=== PATIENT | male | born 1975 | race Asian ===

== ENCOUNTER → 2023-07-19 15:05 | Outpatient (REF) | payer OTHER, SELFPAY | LOC: RAD 15:05 | PROVIDERS: ATTENDING PHYSICIAN Surgery; FAMILY PHYSICIAN Family Medicine | DX: K63.89 Other specified diseases of intestine (principal) | CPT/HCPCS: 71260; 74177; Q9967 ==

== ENCOUNTER 2023-07-27 05:57 | Inpatient (IN) | payer OTHER, SELFPAY ==
[2023-07-16 08:39] VITALS: BMI 28.4
[2023-07-16 10:33] LABS: Hematocrit 32.6 % (39.0-52.0); Hemoglobin 8.6 g/dL (13.0-18.0); Mean Corp Hgb Conc. 26.4 g/dL (33.0-37.0); Mean Corpuscular Volume 64.3 fL (80.0-94.0); Mean Platelet Volume 10.6 fL (7.4-10.4); Platelet Count 527 10^3/uL (130-400); Red Blood Cell Count 5.07 10^6/uL (4.70-6.10); Red Cell Dist. Width 25.2 % (11.5-14.5); White Blood Cell Count 13.1 10^3/uL (4.8-10.8)
[2023-07-16 10:37] LABS: INR 1.06; PT 13.7 Sec (11.4-14.6)
[2023-07-16 10:38] LABS: APTT 38.7 Sec (23.4-35.0)
[2023-07-16 10:55] LABS: ALT (SGPT) 45 U/L (0-50); AST (SGOT) 47 U/L (17-59); Albumin 4.6 g/dl (3.5-5.0); Alkaline Phosphatase 137 U/L (38-126); Blood Urea Nitrogen 8 mg/dl (9-20); Calcium 12.1 mg/dl (8.4-10.2); Carbon Dioxide 25 mmol/L (22-30); Chloride 99 mmol/L (98-107); Estimated Creatinine Clearance 101 ml/min; Glucose 84 mg/dl (70-99); Potassium 4.7 mmol/L (3.5-5.1); Sodium 137 mmol/L (135-145); Total Bilirubin 0.4 mg/dl (0.2-1.3); Total Protein 7.7 g/dl (6.3-8.2); eGFR > 60.00
[2023-07-16 11:23] LABS: CEA 6.34 ng/ml
[2023-07-16 11:49] LABS: Glycohemoglobin (HgbA1c) 5.5 % (4.0-5.6)
--- NOTE | 2023-07-23 13:05 | PTCARENOTE ---
Cindy in 's office was notified of Hgb 8.6 and platelets 527 collected on 07/16/23.
[2023-07-27] VITALS (11 sets, daily range): BP systolic 129–162; BP diastolic 77–102; BMI 28.4
[2023-07-27] MEDS: TYLENOL 1000 MG PO (11:22)
[2023-07-27] MEDS: ENTEREG 12 MG PO (11:22)
[2023-07-27] MEDS: LOVENOX 40 MG SC (11:23)
[2023-07-27] MEDS: NORMOSOL-R 1000 IV ×2 (11:34→21:07)
--- NOTE | 2023-07-27 18:52 | W.IMMPOSTOP ---
Surgical Immed Post Op Note
-
Primary Surgeon: Raman Disla MD
Assisting Surgeon: BARRETT Greenberg and Hodan Harley PA-C
Pre-op Diagnosis: Partial obstructing ascending colon cancer with liver mets
Post-op Diagnosis: Same
Procedure Performed: Robotic right colectomy with intracorporeal anastomosis and liver biopsy
Anesthesia Type: GETA
Specimen / Cultures: Right colon
Liver biopsy
Estimated Blood Loss: 50 cc
Complications: None
Operative Findings: Bilobar hepatic metastases
Bulky tumor in ascending colon with partial obstruction
Patient's family updated.
Colon Resection
Colon Resection
Operation performed with curative intent: No
Tumor Location: Ascending Colon
Right Hemicolectomy: Ileocolic and Right Colic
Other: liver biopsy
--- NOTE | 2023-07-27 20:30 | PTCARENOTE ---
pt arrived from PACU to 2 south via bed. AAOx3, very pleasant, no c/o pain at this time. Oriented to room and all questions about care answered. Deras in place draining yellow urine. IVF started per order. surgical sites to abdomen CDI. care on
going.
[2023-07-27] MEDS: TORADOL 15 MG IV (21:13)
[2023-07-27] MEDS: TYLENOL 650 MG PO (21:14)
[2023-07-28] MEDS: TYLENOL PO ×2 (01:16→12:40)
[2023-07-28] MEDS: TORADOL 15 MG IV ×3 (02:38→14:15)
[2023-07-28] MEDS: TYLENOL 650 MG PO ×5 (03:09→23:51)
[2023-07-28 03:30] VITALS: BP 140/83
[2023-07-28 06:00] VITALS: BMI 27.8
[2023-07-28 07:03] VITALS: BP 149/89
[2023-07-28] MEDS: NORMOSOL-R 1000 IV (07:17)
[2023-07-28 08:35] LABS: % Basophils 0.1 % (0-2); % Immature Granulocytes 0.6 % (0-0.5); % Lymphocytes 5.4 % (20.5-51.1); % Monocytes 8.1 % (1.7-9.3); % Neutrophils 85.8 % (42.2-75.2); Absolute Immature Granulocytes 0.1 10^3/uL (0-0.05); Absolute Lymphocytes 1.1 10^3/uL (1.2-3.4); Absolute Monocytes 1.6 10^3/uL (0.1-0.6); Absolute Neutrophils 17.3 10^3/uL (1.4-6.5); Hemoglobin 7.3 g/dL (13.0-18.0); Mean Corp Hgb Conc. 26.1 g/dL (33.0-37.0); Mean Corpuscular Hgb 17.3 pg (27.0-31.0); Mean Corpuscular Volume 66.2 fL (80.0-94.0); Mean Platelet Volume 10.6 fL (7.4-10.4); Nucleated Red Blood Cells % 0 % (-); Platelet Count 647 10^3/uL (130-400); Red Blood Cell Count 4.23 10^6/uL (4.70-6.10); Red Cell Dist. Width 24.8 % (11.5-14.5); White Blood Cell Count 20.2 10^3/uL (4.8-10.8)
[2023-07-28 08:52] LABS: Normal RBC Morphology No
[2023-07-28 08:53] LABS: Anisocytosis 2+; Hypochromasia 2+; Polychromasia 1+; Target Cells 1+
[2023-07-28 08:54] LABS: Acanthocytes FEW; Ovalocytes 1+
[2023-07-28] MEDS: DILAUDID 0.5 MG IV (09:03)
[2023-07-28] MEDS: ENTEREG 12 MG PO ×2 (09:05→19:46)
[2023-07-28] MEDS: PROTONIX 40 MG PO (09:05)
[2023-07-28 09:23] LABS: Blood Urea Nitrogen 17 mg/dl (9-20); Carbon Dioxide 28 mmol/L (22-30); Chloride 98 mmol/L (98-107); Estimated Creatinine Clearance 72 ml/min; Glucose 91 mg/dl (70-99); Potassium 5.4 mmol/L (3.5-5.1); Sodium 136 mmol/L (135-145); eGFR > 60.00
[2023-07-28 09:36] LABS: Calcium 14.9 mg/dl (8.4-10.2)
[2023-07-28] MEDS: NSS 1000 IV ×4 (10:31→22:42)
[2023-07-28 11:03] VITALS: BP 152/98
--- NOTE | 2023-07-28 11:58 | CON.HOSP ---
Addendum entered and electronically signed by Anival Hurley MD 07/28/23 15:03:
With serum calcium over 15 and ionized calcium of 2.06 will give saline bolus and increase IV saline to 200 an hour and in 4 hours give a course of IV Lasix 40 mg given my concern of this patient's hypercalcemia in the postop setting concern for
rhabdomyolysis in relation to renal failure consult nephrology also conferred with Dr. Disla who acknowledged and agreed.
Original Note:
Consultation
-
Date/Time Consultation Requested: July 27 10:30 AM
Date/Time Consultation Performed: July 27 11:30 AM
Requesting Provider: Dr. Disla
Performing Provider: Dr. Hurley
Reason for Consultation: The medical management electrolyte imbalance
Family Physician
-
Family Physician: Morro Santiago
Chief Complaint
-
Electrolyte imbalance after surgery
History of Present Illness
47-year-old male who underwent a screening colonoscopy on 29 June finding a fungating villous adenomatous mass in nearly obstructing the transverse colon with biopsy results showing a moderately dysplastic adenocarcinoma with high-grade
dysplasia he underwent a robotic right colectomy with intracorporeal anastomosis and liver biopsy with suspect findings of bilobar hepatic metastasis and bulky tumor in the ascending colon with partial obstruction being found as stated above
operative intervention he had minimal blood loss. Recent history includes a 25 pound weight loss in the last 5 months and also being found to be significantly anemic with microcytosis his baseline CEA level was was 6.34 and a preadmission testing
calcium was measured at 12.1 postoperatively his hemoglobin is 7.3 with microcytosis and hypochromia review of preadmission testing also noted anisocytosis and target cells noted. His creatinine today is 1.4 and preadmission creatinine of 1.0.
Present potassium is 5.4 and pending repeat along with a repeat calcium now measured at 14.9 with an ionized calcium of 14.4.
On review of family history in his parents there is diabetes mellitus there is no prior history of GI malignancies. Patient's mother has had prior hypercalcemia and kidney stones. The patient himself admits to taking Tums at least 2 tablets on a
daily basis for some time.
Medical History
Past Medical History
Past Medical History: Reports Cancer (As noted above) and GERD
Past Surgical History: Reports Bowel Resection
Social History
Tobacco: Non-smoker
Alcohol: None
Drug: None
Personal: Single
Living: With Family
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
Family History
Family History: Diabetes
Allergies / Home Medications
Allergies reflects when Allergies were last updated in [employer].
Home Medications with original date entered in [employer]
Allergy/Medication List:
Allergies
Allergy/AdvReac Type Severity Reaction Status Date / Time
clams Allergy Nausea/DIAR Verified 07/27/23 19:58
LAUREN
pollen extracts Allergy Itching Verified 07/27/23 19:58
Home Medications
Multivitamin Supplement 1 tab PO DAILY Supplement 07/23/23
Sutab 1 dose PO DIRECTED Supplement 07/23/23
Tylenol 1,000 mg PO .Q8H PRN pain 07/23/23
cetirizine 10 mg capsule (Zyrtec) 10 mg PO DAILY PRN allergies 07/23/23
metronidazole 500 mg tablet 500 mg PO DIRECTED Infection 07/23/23
neomycin 500 mg tablet 500 mg PO DIRECTED Infection 07/23/23
pantoprazole 40 mg tablet,delayed release (Protonix) 40 mg PO DAILY GERD 07/23/23
triamcinolone acetonide 55 mcg nasal spray aerosol (Nasacort) 1 spray intranasal DAILY PRN allergies 07/23/23
Review of Systems
-
History Source: Patient
Constitutional: Reports See HPI
EENT: Reports No Symptoms and See HPI
Respiratory: Reports No Symptoms and See HPI
Cardiac: Reports No Symptoms and See HPI
Abdomen/GI: Reports See HPI
: Reports No Symptoms and See HPI
Musculoskeletal: Reports See HPI
Skin: Reports No Symptoms
Neurological: Reports No Symptoms
Endocrine: Reports No Symptoms
Physical Exam
Vital Signs
Vital Signs
Temp Pulse Resp BP Pulse Ox
98.1 F 91 16 149/89 99
07/28/23 07:03 07/28/23 07:03 07/28/23 07:03 07/28/23 07:03 07/28/23 07:03
Physical Exam
General: Well Developed
HEENT: Normocephalic
Respiratory: Clear
Cardiac: S1/S2 and Regular Rhythm
GI: Soft, Non Tender and Tender (At incision lines dressed)
Genito-urinary: No Costovertebral Tend
Skin: Warm
Neuro: Awake, Alert and Oriented
Psych: Calm and Intact Judgement
Laboratory Results
-
PT 13.7 Sec (11.4-14.6) 07/16/23 08:46
INR 1.06 07/16/23 08:46
APTT 38.7 Sec (23.4-35.0) H 07/16/23 08:46
Total Bilirubin 0.4 mg/dl (0.2-1.3) 07/16/23 08:46
AST 47 U/L (17-59) 07/16/23 08:46
ALT 45 U/L (0-50) 07/16/23 08:46
Alkaline Phosphatase 137 U/L (38-126) H 07/16/23 08:46
Data Reviewed
-
Total Time Spent with Patient (in minutes): 58
Lab Data: Labs Reviewed (Calcium 14.9 ionized calcium 14.4/potassium five 5.4/hemoglobin 7.3/)
Impression / Plan
-
IMPRESSION:
47-year-old male who underwent a screening colonoscopy on 29 June finding a fungating villous adenomatous mass in nearly obstructing the transverse colon with biopsy results showing a moderately dysplastic adenocarcinoma with high-grade
dysplasia he underwent a robotic right colectomy with intracorporeal anastomosis and liver biopsy with suspect findings of bilobar hepatic metastasis and bulky tumor in the ascending colon with partial obstruction being found as stated above
operative intervention he had minimal blood loss. Recent history includes a 25 pound weight loss in the last 5 months and also being found to be significantly anemic with microcytosis his baseline CEA level was was 6.34 and a preadmission testing
calcium was measured at 12.1 postoperatively his hemoglobin is 7.3 with microcytosis and hypochromia review of preadmission testing also noted anisocytosis and target cells noted. His creatinine today is 1.4 and preadmission creatinine of 1.0.
Present potassium is 5.4 and pending repeat along with a repeat calcium now measured at 14.9 with an ionized calcium of 14.4./Liver transaminases within normal limits
On review of family history in his parents there is diabetes mellitus there is no prior history of GI malignancies. Patient's mother has had prior hypercalcemia and kidney stones. The patient himself admits to taking Tums at least 2 tablets on a
daily basis for some time.
PLAN:
Status post robotic right colectomy with intracorporeal anastomosis and liver biopsy
-Moderately differentiated adenocarcinoma of the ascending colon with suspected bilobar hepatic metastasis
Medical consultation in relation to electrolyte abnormalities:
-Hyperkalemia/dose of Lokelma today reassess in a.m. after hydration with IV saline
-Hypercalcemia also noted preoperatively/IV saline today considered addition of Lasix in a.m.
-Obtain PTH/vitamin D level/must entertain possible metastasis as cause if refractory/then consideration for bisphosphonates for treatment
-Will need to curtail Tums taken as outpatient
-May need to add calcitonin if also refractory
Acute kidney injury
-Noted postoperatively creatinine of 1.4/preadmission testing of 1.0
-IV fluids next 24 hours
-Reassess in a.m.
Anemia
-Hypochromic microcytic
-Presumably iron loss from occult GI process/CA
-Iron levels
-Hemodynamically stable does not appear to need transfusion
-Has been intolerant to iron supplementations in the past
-Consideration for IV iron infusions during hospitalization
Thank you for opportunity to see this patient and will follow with you
[2023-07-28] MEDS: LOKELMA 5 GRAM PO (12:24)
--- NOTE | 2023-07-28 13:00 | W.PN.CRS1 ---
Today's Communication / Plan
-
Clear liquid diet
Pain management
Assessment/Plan
-
47 yo male presenting for operative management of partial obstructing ascending colon cancer with liver mets now POD #1 Robotic right colectomy with intracorporeal anastomosis and liver biopsy
AFVSS
Hypercalcemia and hyperkalemia
Acute on chronic anemia. Slight drift post op with intraoperative losses and hemodilution
--Repeat labs this afternoon and in the AM
--Hospitalist consulted to assist with management
--Start clear liquid diet, advance to FLD for dinner if passing flatus/tolerating
--D/C cortez for voiding trial
--Ok to shower
--Pain management: Tylenol, Toradol scheduled. PRN dilaudid
--OR path pending
--SCD's while in bed for VTE ppx. If h/h stable, will add lovenox 40mg SQ as well
Subjective Data
Procedure
07/27/23 Robotic right colectomy with intracorporeal anastomosis and liver biopsy
Subjective Data
Date of Service: July 28, 2023
Patient seen and examined at bedside with Dr. Disla. Pain well managed. Denies n/v. No flatus as of yet.
Objective Data
-
Vital Signs
Temp Pulse Resp BP Pulse Ox
98.1 F 91 16 149/89 99
07/28/23 07:03 07/28/23 07:03 07/28/23 07:03 07/28/23 07:03 07/28/23 07:03
Intake & Output
07/27/23 07/28/23 07/29/23
06:59 06:59 06:59
Intake Total 1580 / 1580
Output Total 1400 / 1400
Balance 180 / 180
Intake:
Oral fluids 480 / 480
IV fluids (Total) 1100 / 1100
Output:
Urine, Cortez 1400 / 1400
Physical Exam
-
General: No Acute Distress
HEENT: Grossly Normal
Abdomen: Soft, Non Distended, Tender (expected incisional tenderness) and Other (cortez clear yellow urine)
Skin: Warm
Incision: Clear, Dry, Intact and No Skin Erythema
--- NOTE | 2023-07-28 13:16 | CM ---
Reviewed the chart notes and spoke with the patient at the bedside. Patient is POD #1 Robotic right colectomy with intracorporeal anastomosis and liver biopsy. The patient resides with his significant other in a two story home with no steps to
enter. The patient reports no DME/VN/SNF in the past. The patient confirmed his pharmacy of choice is the [facility]. The patient anticipates being discharged to home with no additional needs being identified at this time.
continues to be available to patient/family and is monitoring medical plan for needs at discharge.
Plan: Discharge to home when medically stable. No needs identified at this time.
[2023-07-28 13:55] LABS: Hematocrit 28.2 % (39.0-52.0); Hemoglobin 7.7 g/dL (13.0-18.0)
[2023-07-28 13:59] LABS: Ionized Calcium 2.06 mMOL/L (1.15-1.33)
[2023-07-28 14:28] LABS: Blood Urea Nitrogen 20 mg/dl (9-20); Carbon Dioxide 26 mmol/L (22-30); Chloride 98 mmol/L (98-107); Estimated Creatinine Clearance 67 ml/min; Glucose 111 mg/dl (70-99); Iron 33 ug/dl (49-181); Magnesium 2.4 mg/dl (1.6-2.3); Phosphorus 4.3 mg/dl (2.5-4.5); Potassium 4.6 mmol/L (3.5-5.1); Sodium 132 mmol/L (135-145); eGFR 58.15
[2023-07-28 14:35] LABS: Intact PTH 10.5 pg/ml (13.6-85.8)
[2023-07-28 14:40] LABS: Percent Saturation 11 % (20-50); Total Iron Binding Capacity 297 ug/dl (261-462); Vitamin D, 25-OH*** 20.1 ng/mL (30-80)
[2023-07-28] MEDS: LASIX 40 MG IV (15:17)
[2023-07-28] MEDS: NSS 500 IV (15:18)
--- NOTE | 2023-07-28 15:43 | W.CON.NEPH ---
Consultation
-
Date/Time Consultation Requested: 07/28/2023 3:00 PM
Date/Time Consultation Performed: 07/28/2023 3:15 PM
Requesting Provider: Xavi
Performing Provider: Sidney
Reason for Consultation: Acute kidney injury hyponatremia hypercalcemia
Medical History
-
Chief Complaint: Hypercalcemia/acute kidney/hyponatremia
History of Present Illness:
The patient is a 47-year-old male with past medical history of GERD maintained on proton pump inhibitor therapy and calcium carbonate. The patient �underwent a screening colonoscopy on 29 June finding a fungating villous adenomatous mass in
nearly obstructing the transverse colon with biopsy results showing a moderately dysplastic adenocarcinoma with high-grade dysplasia he underwent a robotic right colectomy with intracorporeal anastomosis and liver biopsy with suspect findings of
bilobar hepatic metastasis and bulky tumor in the ascending colon with partial obstruction being found as stated above operative intervention he had minimal blood loss.� Recent history includes a 25 pound weight loss in the last 5 months and also
being found to be significantly anemic with microcytosis his baseline CEA level was was 6.34 and a preadmission testing calcium was measured at 12.1 postoperatively his hemoglobin is 7.3 with microcytosis and hypochromia review of preadmission
testing also noted anisocytosis and target cells noted.� His creatinine today is 1.5 and preadmission creatinine of 1.0.� Present potassium is 5.4 and pending repeat along with a repeat calcium now measured at 14.9 with an ionized calcium of 2.06.
He also has associated hyponatremia with a serum sodium of 132. Nephrology was asked to see the patient for his acute hyper calcium, hyponatremia and acute renal failure.
On review of family history in his parents there is diabetes mellitus there is no prior history of GI malignancies.� Patient's mother has had prior hypercalcemia and kidney stones.�
Past Medical History
GERD
Social History
No tobacco abuse
Occasional alcohol but no alcohol since March 2023
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
Family History
On review of family history in his parents there is diabetes mellitus there is no prior history of GI malignancies.� Patient's mother has had prior hypercalcemia and kidney stones
Allergies / Home Medications
Allergy/AdvReac Type Severity Reaction Status Date / Time
clams Allergy Nausea/DIAR Verified 07/27/23 19:58
LAUREN
pollen extracts Allergy Itching Verified 07/27/23 19:58
Medication Instructions Recorded Confirmed Type
Multivitamin Supplement 1 tab PO DAILY Supplement 07/23/23 07/27/23 History
Sutab 1 dose PO DIRECTED Supplement 07/23/23 07/27/23 History
Tylenol 1,000 mg PO .Q8H PRN pain 07/23/23 07/27/23 History
cetirizine 10 mg capsule (Zyrtec) 10 mg PO DAILY PRN allergies 07/23/23 07/27/23 History
metronidazole 500 mg tablet 500 mg PO DIRECTED Infection 07/23/23 07/27/23 History
neomycin 500 mg tablet 500 mg PO DIRECTED Infection 07/23/23 07/27/23 History
pantoprazole 40 mg tablet,delayed 40 mg PO DAILY GERD 07/23/23 07/27/23 History
release (Protonix)
triamcinolone acetonide 55 mcg 1 spray intranasal DAILY PRN 07/23/23 07/27/23 History
nasal spray aerosol (Nasacort) allergies
Review of Systems
-
History Source: Patient
All other systems: Negative unless noted
Constitutional: Weight Loss (25 pounds over few months)
EENT: No Symptoms
Respiratory: No Symptoms
Cardiac: No Symptoms
Abdomen/GI: Abdominal Pain (post operative)
: No Symptoms
Musculoskeletal: No Symptoms
Skin: No Symptoms
Neurological: No Symptoms
Endocrine: No Symptoms
Hematologic/Lymphatic: No Symptoms
Physical Exam
Vital Signs
Vital Signs
Temp Pulse Resp BP Pulse Ox
98.1 F 97 16 152/98 99
07/28/23 11:03 07/28/23 11:03 07/28/23 11:03 07/28/23 11:03 07/28/23 11:03
Lab Results
07/28/23 13:48
07/28/23 13:48
WBC 20.2 10^3/uL (4.8-10.8) H 07/28/23 06:46
RBC 4.23 10^6/uL (4.70-6.10) L 07/28/23 06:46
Hgb 7.7 g/dL (13.0-18.0) L 07/28/23 13:48
Hct 28.2 % (39.0-52.0) L 07/28/23 13:48
Plt Count 647 10^3/uL (130-400) H 07/28/23 06:46
Sodium 132 mmol/L (135-145) L 07/28/23 13:48
Potassium 4.6 mmol/L (3.5-5.1) 07/28/23 13:48
Chloride 98 mmol/L (98-107) 07/28/23 13:48
Carbon Dioxide 26 mmol/L (22-30) 07/28/23 13:48
BUN 20 mg/dl (9-20) 07/28/23 13:48
Creatinine 1.5 mg/dL (0.7-1.3) H 07/28/23 13:48
eGFR 58.15 07/28/23 13:48
Glucose 111 mg/dl (70-99) H 07/28/23 13:48
Calcium Cancelled 07/28/23 14:00
Phosphorus 4.3 mg/dl (2.5-4.5) 07/28/23 13:48
Albumin 4.6 g/dl (3.5-5.0) 07/16/23 08:46
Physical Exam
General: AOx3
HEENT: PERRL, EOMI, Anicteric, Conjunctivae Clear, Ear/Nose Intact, Hearing Normal, Oropharynx Clear/Moist, Dentition Intact, Neck Supple, Trachea Midline, No JVD and No Thyromegaly
Respiratory: Clear and Normal Excursion
Cardiac: S1/S2 and Regular Rate/Rhythm
Breast: Deferred by me
Abdomen: Soft and Other (Tender around surgical site, some bowel sounds noted)
Rectal: Deferred by Provider
Genito-urinary: No Costovertebral Tender
Musculoskeletal: No Clubbing, No Cyanosis and No Edema
Skin: No Rash, Warm, Dry, No Clubbing, No Cyanosis, Normal Turgor and No Bruising
Neuro: Nonfocal/Grossly Intact and CN II-XII (intact)
Hematologic/Lymphatic: No Cervical Lymphadenopathy, No Submandibular Lymphadenopathy and No Supraclavicular Lymphadenopathy
Psych: Mood/afflect pleasant, Insight/judgement good and Appropriate
Assessment/Plan
-
Impression:
Status post robotic right colectomy with intracorporeal anastomosis and liver biopsy 07/27/23 for fungating villous adenomatous colon mass with hepatic metastasis
Hypercalcemia
Hyponatremia
Acute kidney
Anemia
Plan:
I suspect the patient's acute kidney injury is mediated by his hypercalcemia precipitating a strong prerenal
-Therefore I concur with administration of normal saline with IV Lasix to promote Calciuria
-As hypercalcemia is likely causative etiology of acute renal failure I will treat with pamidronate IV as serum calcium now noted to be 15
-Intact PTH was appropriately repressed at 10.5, I suspect hypercalcemia is mediated by underlying malignancy which I will confirm with a PTH RP
-Vitamin D levels were not
-Withhold further calcium carbonate
-check UA and FeNa in setting of CHANNING
-Monitor hyponatremia and will place fluid restriction and obtain urine osmolarity if needed
Data Reviewed
-
CT Scan: Report Reviewed by me (CT of abdomen and pelvis with IV contrast reviewed from July 2023: No hydronephrosis large mass within cecum extending into proximal ascending colon)
Medical Tests (Nuc Med, Echo etc): Other (EKG personally reviewed by me normal sinus rhythm at 89 beats per minute)
Labs: Labs Reviewed by me (BMP calcium CBC reviewed)
Old Records: Reviewed (Reviewed old BMP from date 07/16/2023 creatinine 1 calcium 12.1)
[2023-07-28 16:02] VITALS: BP 158/110
[2023-07-28] MEDS: AREDIA 270 MG IV (16:41)
[2023-07-28 16:59] LABS: Osmolality Urine 219 mOsm/kg (300-900)
[2023-07-28 17:08] LABS: Urine Albumin Negative (Neg - Trace); Urine Bilirubin Negative (Negative); Urine Character Clear (Clear); Urine Color Straw; Urine Glucose Negative (Negative); Urine Ketone Negative (Negative); Urine Leukocyte Trace (Negative); Urine Nitrite Negative (Negative); Urine Occult Blood Negative (Negative); Urine Urobilinogen Negative (Neg - 1+)
[2023-07-28 17:13] LABS: Urine Sodium 92 mmol/L (30-90)
[2023-07-28] MEDS: LOVENOX 40 MG SC (17:17)
[2023-07-28 17:19] LABS: Urine Red Blood Cell 0-2 /HPF (0-2); Urine White Cell 0-2 /HPF (0-5)
--- NOTE | 2023-07-28 17:53 | PTCARENOTE ---
Patients blood pressure at 1602 was 158/[address] Hurley made aware. No new orders given at that time.
[2023-07-29] VITALS (8 sets, daily range): BP systolic 115–153; BP diastolic 74–99; BMI 27.5
--- NOTE | 2023-07-29 03:13 | PTCARENOTE ---
patient states he started passing flatus.
[2023-07-29] MEDS: NSS 1000 IV ×3 (03:30→14:46)
[2023-07-29] MEDS: TYLENOL PO (04:20)
--- NOTE | 2023-07-29 07:29 | W.PN.HOSP.TC ---
Today's Communication/Plan
-
Awaiting today's labs including renal numbers and calcium
Appreciate nephrology input
Continue IV hydration
Received doses of pamidronate
Would add IV iron
Assessment / Plan
Assessment / Plan
47-year-old male who underwent a screening colonoscopy on 29 June finding a fungating villous adenomatous mass in nearly obstructing the transverse colon with biopsy results showing a moderately dysplastic adenocarcinoma with high-grade
dysplasia he underwent a robotic right colectomy with intracorporeal anastomosis and liver biopsy with suspect findings of bilobar hepatic metastasis and bulky tumor in the ascending colon with partial obstruction being found as stated above
operative intervention he had minimal blood loss.� Recent history includes a 25 pound weight loss in the last 5 months and also being found to be significantly anemic with microcytosis his baseline CEA level was was 6.34 and a preadmission testing
calcium was measured at 12.1 postoperatively his hemoglobin is 7.3 with microcytosis and hypochromia review of preadmission testing also noted anisocytosis and target cells noted.� His creatinine today is 1.4 and preadmission creatinine of 1.0.�
Present potassium is 5.4 and pending repeat along with a repeat calcium now measured at 14.9 with an ionized calcium of 14.4.
On review of family history in his parents there is diabetes mellitus there is no prior history of GI malignancies.� Patient's mother has had prior hypercalcemia and kidney stones.� The patient himself admits to taking Tums at least 2 tablets on a
daily basis for some time.
Status post robotic right colectomy with intracorporeal anastomosis and liver biopsy
-Moderately differentiated adenocarcinoma of the ascending colon with suspected bilobar hepatic metastasis
-No transaminitis
Medical consultation in relation to�electrolyte abnormalities:
-Hyperkalemia/dose of Lokelma given and resolved
-Hypercalcemia�also noted preoperatively/IV saline at increased volume for the last 12 hours with IV Lasix given
-Serum calcium of 15 ionized calcium 2.06
- PTH level suppressed/vitamin D level diminished/must entertain his malignancy contributing/bisphosphonate/pamidronate given
-Will need to curtail Tums taken as outpatient
-Have asked nephrology input given degree of hypercalcemia may be instigating his CHANNING
Acute kidney injury
-Noted postoperatively creatinine of 1.4>> 1.5/preadmission testing of 1.0
-IV fluids next 24 hours
-Repeat labs pending this morning
Anemia
-Hypochromic microcytic
-Presumably iron loss from occult GI process/CA
-Iron levels all depressed
-Hemodynamically stable does not appear to need transfusion
-Has been intolerant to iron supplementations in the past
-Consideration for IV iron infusions during hospitalization
Thank you for opportunity to see this patient and will follow with you
Anticipated Discharge: 24 - 48 hours
Subjective/Interval History
-
Date of Service: July 29, 2023
Feels well hide small narrow caliber bowel movement earlier with some red streaks been urinating constantly due to the vigorous fluid volume he has been receiving overnight and IV Lasix
Objective Data
-
Labs:
Laboratory Results
07/29/23
07:19
WBC Pending
Hgb Pending
Hct Pending
Plt Count Pending
Sodium Pending
Potassium Pending
Chloride Pending
Carbon Dioxide Pending
BUN Pending
Creatinine Pending
Glucose Pending
Calcium Pending
Vital Signs:
Vital Signs
Temp Pulse Resp BP Pulse Ox
98.0 F 88 18 144/93 100
07/29/23 00:10 07/29/23 00:10 07/29/23 00:10 07/29/23 00:10 07/29/23 00:10
I&O
07/28/23 07/29/23 07/30/23
06:59 06:59 06:59
Intake Total 1580 / 1580 4560 / 4560
Output Total 1400 / 1400 5125 / 5125
Balance 180 / 180 -565 / -565
Review of Systems
-
History Source: Patient
Constitutional: Reports No Symptoms
EENT: Reports No Symptoms Reported
Respiratory: Reports No Symptoms
Cardiac: Reports No Symptoms
Abdomen/GI: Reports No Symptoms
Genitourinary: Reports Frequency
Physical Exam
-
General: Well Developed
HEENT: Normocephalic
Respiratory: Clear to Auscultation
Cardiac: Regular Rhythm
GI: Soft and Tender (Only around incision)
Skin: Warm
Neuro: Awake
Psych: Calm
Data Reviewed
-
Total Time Spent with Patient (in minutes): 56
Labs: Labs Reviewed by me (Today's labs pending but ionized calcium and serum calcium are significantly elevated, potassium corrected to 4 .6 yesterday/creatinine john further to 1.5)
[2023-07-29 07:46] LABS: Hematocrit 27.7 % (39.0-52.0); Hemoglobin 7.2 g/dL (13.0-18.0); Mean Corpuscular Hgb 17.2 pg (27.0-31.0); Mean Corpuscular Volume 66.1 fL (80.0-94.0); Mean Platelet Volume 10.3 fL (7.4-10.4); Platelet Count 646 10^3/uL (130-400); Red Blood Cell Count 4.19 10^6/uL (4.70-6.10); Red Cell Dist. Width 24.5 % (11.5-14.5); White Blood Cell Count 18.7 10^3/uL (4.8-10.8)
[2023-07-29] MEDS: TYLENOL 650 MG PO ×4 (08:34→20:48)
[2023-07-29] MEDS: PROTONIX 40 MG PO (08:34)
[2023-07-29] MEDS: ENTEREG 12 MG PO (08:34)
[2023-07-29 09:04] LABS: Blood Urea Nitrogen 19 mg/dl (9-20); Carbon Dioxide 26 mmol/L (22-30); Chloride 105 mmol/L (98-107); Estimated Creatinine Clearance 72 ml/min; Glucose 86 mg/dl (70-99); Magnesium 2.4 mg/dl (1.6-2.3); Phosphorus 2.7 mg/dl (2.5-4.5); Potassium 4.4 mmol/L (3.5-5.1); Sodium 136 mmol/L (135-145); Uric Acid 11.8 mg/dl (3.5-8.5); eGFR > 60.00
--- NOTE | 2023-07-29 11:50 | W.PN.CRS1 ---
Today's Communication / Plan
-
low residue
trend hemoglobin
Assessment/Plan
-
47 yo male presenting for operative management of partial obstructing ascending colon cancer with liver mets now POD #1 Robotic right colectomy with intracorporeal anastomosis and liver biopsy
1. Vitas normal.
2. Hemoglobin 7.2 from 7.7. Will trend. No transfusions yet.
3. Advance to a low residue diet.
4. Appreciate hospitalist/nephrology for management of electrolytes.
5. Pain management: Tylenol, Toradol scheduled. PRN Dilaudid.
6. OR path pending
7. SCD's while in bed for VTE ppx, continue Lovenox.
Subjective Data
Procedure
07/27/23 Robotic right colectomy with intracorporeal anastomosis and liver biopsy
Subjective Data
Date of Service: July 29, 2023
Patient states he has no pain. He had flatus a few times. He had a small bloody bowel movement yesterday. He got out of bed yesterday and walked.
Objective Data
-
Vital Signs
Temp Pulse Resp BP Pulse Ox
99.6 F 97 16 153/99 100
07/29/23 07:35 07/29/23 10:13 07/29/23 07:35 07/29/23 07:35 07/29/23 10:13
Intake & Output
07/28/23 07/29/23 07/30/23
06:59 06:59 06:59
Intake Total 1580 / 1580 4560 / 4560
Output Total 1400 / 1400 5125 / 5125
Balance 180 / 180 -565 / -565
Intake:
Oral fluids 480 / 480 480 / 480
IV fluids (Total) 1100 / 1100 3810 / 3810
IV piggybacks 270 / 270
Output:
Urine, Deras 1400 / 1400
Urine, Voided 5125 / 5125
Other:
Number of approximated MODERATE 2
amounts of urine
Lab Results
07/29/23 07:19
07/29/23 07:19
Physical Exam
-
General: No Acute Distress and AOx3
Abdomen: Soft, Non Distended and Non Tender
Skin: Warm and Dry
Incision: Clear, Dry, Intact
--- NOTE | 2023-07-29 11:52 | W.PN.NEPH.PH ---
Today's Communication / Plan
-
Maintain IV fluid
Follow calcium and electrolyte daily
Assessment/Plan
-
Impression:
Status post robotic right colectomy with intracorporeal anastomosis and liver biopsy 07/27/23 for fungating villous adenomatous colon mass with hepatic metastasis
Hypercalcemia
Hyponatremia
Acute kidney
Anemia
Plan:
I suspect the patient's acute kidney injury is mediated by his hypercalcemia precipitating a strong prerenal stimulus
-Creatinine down to 1.4 and grossly nonoliguric with greater than 5 L urine output
-status post pamidronate administration on 07/28/2023 with serum calcium down from 15-13
-Maintain IV fluids to promote Calciuria
-Intact PTH was appropriately repressed at 10.5, I suspect hypercalcemia is mediated by underlying malignancy which I will confirm with a PTH RP
-Vitamin D levels were not elevated
-Withholding further calcium carbonate
-checked UA: No evidence of blood or protein Fena was not consistent with prerenal stimulus
-Hyponatremia improving with isotonic saline
-
-
Date of Service: July 29, 2023
CC / HPI / ROS
-
Chief Complaint:
Hypercalcemia
Acute kidney
History of Present Illness:
Hemodynamically stable
Creatinine improved to 1.4
Serum calcium down from 15-13 following pamidronate IV fluids and Lasix
Review of Systems:
Grossly nonoliguric in excess of 5 L
No chest pain or shortness of breath
Diet advancing
Flatus
Postoperative abdominal pain improved
Labs
-
Labs:
WBC 18.7 10^3/uL (4.8-10.8) H 07/29/23 07:19
RBC 4.19 10^6/uL (4.70-6.10) L 07/29/23 07:19
Hgb 7.2 g/dL (13.0-18.0) L 07/29/23 07:19
Hct 27.7 % (39.0-52.0) L 07/29/23 07:19
Plt Count 646 10^3/uL (130-400) H 07/29/23 07:19
Sodium 136 mmol/L (135-145) 07/29/23 07:19
Potassium 4.4 mmol/L (3.5-5.1) 07/29/23 07:19
Chloride 105 mmol/L (98-107) 07/29/23 07:19
Carbon Dioxide 26 mmol/L (22-30) 07/29/23 07:19
BUN 19 mg/dl (9-20) 07/29/23 07:19
Creatinine 1.4 mg/dL (0.7-1.3) H 07/29/23 07:19
eGFR > 60.00 07/29/23 07:19
Glucose 86 mg/dl (70-99) 07/29/23 07:19
Calcium 13.0 mg/dl (8.4-10.2) H 07/29/23 07:19
Phosphorus 2.7 mg/dl (2.5-4.5) 07/29/23 07:19
Albumin 4.6 g/dl (3.5-5.0) 07/16/23 08:46
Physical Exam
-
Vital Signs:
Vital Signs
Temp Pulse Resp BP Pulse Ox
99.6 F 97 16 153/99 100
07/29/23 07:35 07/29/23 10:13 07/29/23 07:35 07/29/23 07:35 07/29/23 10:13
Cardiovascular:: Regular rate and rhythm
Respiratory:: Bilateral: CTA
Lung Excursion:: Normal
Abdomen:: Soft and Tender
Bowel Sounds:: Decreased
Extremity Edema:: None: Bilateral:
Deras Catheter: No
[2023-07-29] MEDS: FERRLECIT 110 MG IV (13:31)
[2023-07-29 15:04] LABS: Hematocrit 24.1 % (39.0-52.0)
[2023-07-29 15:08] LABS: Hemoglobin 6.7 g/dL (13.0-18.0)
[2023-07-29] MEDS: LOVENOX 40 MG SC (17:42)
[2023-07-29] MEDS: ENTEREG PO (20:48)
--- NOTE | 2023-07-29 22:00 | PTCARENOTE ---
1u PRBC infused, no adverse reactions noted. Vital signs documented. Assessment ongoing.
[2023-07-30] VITALS (9 sets, daily range): BP systolic 138–155; BP diastolic 83–97; BMI 28.2
[2023-07-30] MEDS: TYLENOL PO ×5 (00:40→20:27)
[2023-07-30] MEDS: NSS IV ×2 (01:11→10:59)
[2023-07-30] MEDS: NSS 1000 IV ×2 (02:50→12:11)
[2023-07-30 06:23] LABS: Hematocrit 24.8 % (39.0-52.0); Mean Corp Hgb Conc. 27.4 g/dL (33.0-37.0); Mean Corpuscular Volume 69.3 fL (80.0-94.0); Mean Platelet Volume 10.2 fL (7.4-10.4); Platelet Count 468 10^3/uL (130-400); Red Blood Cell Count 3.58 10^6/uL (4.70-6.10); Red Cell Dist. Width 25.1 % (11.5-14.5); White Blood Cell Count 11.5 10^3/uL (4.8-10.8)
[2023-07-30 06:43] LABS: Hemoglobin 6.8 g/dL (13.0-18.0)
[2023-07-30 06:51] LABS: ALT (SGPT) 41 U/L (0-50); AST (SGOT) 62 U/L (17-59); Albumin 3.1 g/dl (3.5-5.0); Alkaline Phosphatase 181 U/L (38-126); Blood Urea Nitrogen 19 mg/dl (9-20); Calcium 11.1 mg/dl (8.4-10.2); Carbon Dioxide 25 mmol/L (22-30); Chloride 102 mmol/L (98-107); Estimated Creatinine Clearance 84 ml/min; Glucose 77 mg/dl (70-99); Potassium 4.6 mmol/L (3.5-5.1); Sodium 135 mmol/L (135-145); Total Bilirubin 0.5 mg/dl (0.2-1.3); Total Protein 5.7 g/dl (6.3-8.2); eGFR > 60.00
[2023-07-30] MEDS: PROTONIX 40 MG PO (08:17)
[2023-07-30] MEDS: ENTEREG PO ×2 (08:17→20:27)
[2023-07-30] MEDS: TYLENOL 650 MG PO (08:17)
[2023-07-30 09:09] LABS: Hematocrit 23.2 % (39.0-52.0); Mean Corp Hgb Conc. 28.9 g/dL (33.0-37.0); Mean Corpuscular Hgb 19.9 pg (27.0-31.0); Mean Corpuscular Volume 68.8 fL (80.0-94.0); Mean Platelet Volume 10.3 fL (7.4-10.4); Platelet Count 480 10^3/uL (130-400); Red Blood Cell Count 3.37 10^6/uL (4.70-6.10); Red Cell Dist. Width 25.2 % (11.5-14.5); White Blood Cell Count 13.7 10^3/uL (4.8-10.8)
[2023-07-30 09:15] LABS: Hemoglobin 6.7 g/dL (13.0-18.0)
--- NOTE | 2023-07-30 10:57 | W.PN.NEPH.PH ---
Today's Communication / Plan
-
reduce IVF
Assessment/Plan
-
Impression:
Status post robotic right colectomy with intracorporeal anastomosis and liver biopsy 07/27/23 for fungating villous adenomatous colon mass with hepatic metastasis
Hypercalcemia
Hyponatremia
Acute kidney
Anemia
Plan:
-reduce IVF rate
-follow BMP
-can use lasix prn for edema
-transfuse PRBC, follow h/h
-await liver path
-await PTHrP
-
-
Date of Service: July 30, 2023
CC / HPI / ROS
-
Chief Complaint:
Hypercalcemia
Acute kidney
History of Present Illness:
Hemodynamically stable
Creatinine improved to 1.2
Serum calcium down from 15- to 11.1
Review of Systems:
Grossly nonoliguric
No chest pain or shortness of breath
Flatus
Postoperative abdominal pain improved
Labs
-
Labs:
WBC 13.7 10^3/uL (4.8-10.8) H 07/30/23 08:56
RBC 3.37 10^6/uL (4.70-6.10) L 07/30/23 08:56
Hgb 6.7 g/dL (13.0-18.0) L* 07/30/23 08:56
Hct 23.2 % (39.0-52.0) L 07/30/23 08:56
Plt Count 480 10^3/uL (130-400) H 07/30/23 08:56
Sodium 135 mmol/L (135-145) 07/30/23 05:12
Potassium 4.6 mmol/L (3.5-5.1) 07/30/23 05:12
Chloride 102 mmol/L (98-107) 07/30/23 05:12
Carbon Dioxide 25 mmol/L (22-30) 07/30/23 05:12
BUN 19 mg/dl (9-20) 07/30/23 05:12
Creatinine 1.2 mg/dL (0.7-1.3) 07/30/23 05:12
eGFR > 60.00 07/30/23 05:12
Glucose 77 mg/dl (70-99) 07/30/23 05:12
Calcium 11.1 mg/dl (8.4-10.2) H 07/30/23 05:12
Phosphorus 2.7 mg/dl (2.5-4.5) 07/29/23 07:19
Albumin 3.1 g/dl (3.5-5.0) L 07/30/23 05:12
Physical Exam
-
Vital Signs:
Vital Signs
Temp Pulse Resp BP Pulse Ox
98.2 F 99 18 146/91 99
07/30/23 08:25 07/30/23 08:25 07/30/23 08:25 07/30/23 08:25 07/30/23 08:00
Cardiovascular:: Regular rate and rhythm
Lung Excursion:: Normal
Abdomen:: Nontender and Soft
Bowel Sounds:: Normal
Extremity Edema:: +1: Bilateral:
--- NOTE | 2023-07-30 11:46 | W.PN.CRS1 ---
Today's Communication / Plan
-
1 unit prbcs
recheck h/h later today
monitor vitals
Assessment/Plan
-
47 yo male presenting for operative management of partial obstructing ascending colon cancer with liver mets now POD #3 Robotic right colectomy with intracorporeal anastomosis and liver biopsy
1. Tachycardic overnight. EKG ordered prior to rounds which showed sinus with some PVCs.
2. Tmax 100.2, wnl this morning. Continue to monitor.
3. Hgb 6.7 s/p 1 unit last night. Currently receiving another 1 more unit this AM. Recheck H/H later today.
4. On a low residue diet.
5. Appreciate hospitalist/nephrology for management of electrolytes.
6. Pain management: Tylenol, Toradol scheduled. PRN Dilaudid.
7. OR path pending
8. SCD's while in bed for VTE ppx, holding Lovenox given anemia.
Subjective Data
Procedure
07/27/23 Robotic right colectomy with intracorporeal anastomosis and liver biopsy
Subjective Data
Date of Service: July 30, 2023
Patient states he had a few bowel movements yesterday. There were some bloody clots and brown/red colored stool. Otherwise, he has no pain, he is just 'sore'. He denies nausea or vomiting. He is tolerating a low residue diet.
Objective Data
-
Vital Signs
Temp Pulse Resp BP Pulse Ox
98.5 F 100 18 150/95 99
07/30/23 11:06 07/30/23 11:06 07/30/23 11:06 07/30/23 11:06 07/30/23 08:00
Intake & Output
07/29/23 07/30/23 07/31/23
06:59 06:59 06:59
Intake Total 4560 / 4560 4100 / 4100 250 / 250
Output Total 5125 / 5125 1155 / 1155
Balance -565 / -565 2945 / 2945 250 / 250
Intake:
Oral fluids 480 / 480 1860 / 1860
IV fluids (Total) 3810 / 3810 1740 / 1740
IV piggybacks 270 / 270
Blood products 250 / 250
Blood Product Amount Infused ( 250 / 250 250 / 250
mL)
Packed Rbc Leukoreduced Unit 250 / 250
[id number]
Packed Rbc Leukoreduced Unit 250 / 250
[id number]
Output:
Urine, Voided 5125 / 5125 115 / 1155
Other:
Number of approximated MODERATE 2 3
amounts of urine
Number of unmeasured liquid
stools
Rectum 1
Lab Results
07/30/23 08:56
07/30/23 05:12
Physical Exam
-
General: No Acute Distress and AOx3
Abdomen: Soft, Non Distended and Tender (mild upper quadrants)
Skin: Warm and Dry
--- NOTE | 2023-07-30 12:32 | CM ---
Reviewed the chart notes. Patient received received 1 unit PRBC yesterday and another today. Diet advanced to low residual. CM continues to be available to patient/family and is monitoring medical plan for needs at discharge.
Plan: Discharge to home when medically stable. No needs anticipated at this time.
[2023-07-30] MEDS: FERRLECIT 110 MG IV (13:52)
--- NOTE | 2023-07-30 13:57 | W.PN.HOSP.TC ---
Today's Communication/Plan
-
trend cbc, transfuse as necessary; hgb goal >7; hold dvt ppx if continued hgb drop
IV Iron
Reduce IV fluids, monitor Ca - anticipate will be lower tomorrow especially with tranfusions
Assessment / Plan
Assessment / Plan
47-year-old male who underwent a screening colonoscopy on 29 June finding a fungating villous adenomatous mass in nearly obstructing the transverse colon with biopsy results showing a moderately dysplastic adenocarcinoma with high-grade
dysplasia he underwent a robotic right colectomy with intracorporeal anastomosis and liver biopsy with suspect findings of bilobar hepatic metastasis and bulky tumor in the ascending colon with partial obstruction being found as stated above
operative intervention he had minimal blood loss.� Recent history includes a 25 pound weight loss in the last 5 months and also being found to be significantly anemic with microcytosis his baseline CEA level was was 6.34 and a preadmission testing
calcium was measured at 12.1 postoperatively his hemoglobin is 7.3 with microcytosis and hypochromia review of preadmission testing also noted anisocytosis and target cells noted.� His creatinine today is 1.4 and preadmission creatinine of 1.0.�
Present potassium is 5.4 and pending repeat along with a repeat calcium now measured at 14.9 with an ionized calcium of 14.4.
On review of family history in his parents there is diabetes mellitus there is no prior history of GI malignancies.� Patient's mother has had prior hypercalcemia and kidney stones.� The patient himself admits to taking Tums at least 2 tablets on a
daily basis for some time.
Status post robotic right colectomy with intracorporeal anastomosis and liver biopsy
-Moderately differentiated adenocarcinoma of the ascending colon with suspected bilobar hepatic metastasis
-No transaminitis
-F/u Liver bx
Medical consultation in relation to�electrolyte abnormalities:
-Hyperkalemia/dose of Lokelma given and resolved
-Hypercalcemia�also noted preoperatively/IV saline at increased volume for the last 12 hours with IV Lasix given
�Improving
- PTH level suppressed/vitamin D level diminished/must entertain his malignancy contributing/bisphosphonate/pamidronate given
-Will need to curtail Tums taken as outpatient
-Have asked nephrology input given degree of hypercalcemia may be instigating his CHANNING
�Reduce IV fluid rate, follow-up calcium levels; okay for low-dose Lasix for edema
� Await PTHrP
Acute kidney injury
-Noted postoperatively creatinine of 1.4>> 1.5/preadmission testing of 1.0
-IV fluids next 24 hours
-improving
Anemia, acute blood loss anemia
-Hypochromic microcytic
-Presumably iron loss from occult GI process/CA as well as possible acute bleed
-s/p 1 u prbc; transfuse additional 1 additional unit; maintain hgB > 7; trend cbc
-cont iv iron
-if continued to drop - can stop dvt ppx
Thank you for opportunity to see this patient and will follow with you
Anticipated Discharge: > 48 hours
Subjective/Interval History
-
Date of Service: July 30, 2023
Patient receiving further transfusions for anemia, otherwise no acute changes
Objective Data
-
Labs:
Laboratory Results
07/30/23 07/30/23 07/30/23
05:12 08:56 16:00
WBC 11.5 H 13.7 H
Hgb 6.8 L* 6.7 L* Pending
Hct 24.8 L 23.2 L Pending
Plt Count 468 H D 480 H
Sodium 135
Potassium 4.6
Chloride 102
Carbon Dioxide 25
BUN 19
Creatinine 1.2
Glucose 77
Calcium 11.1 H
Total Bilirubin 0.5
AST 62 H
ALT 41
Alkaline Phosphatase 181 H
Vital Signs:
Vital Signs
Temp Pulse Resp BP Pulse Ox
98.5 F 100 18 150/95 99
07/30/23 11:06 03/25/24 11:06 07/30/23 11:06 07/30/23 11:06 07/30/23 08:00
I&O
07/29/23 07/30/23 07/31/23
06:59 06:59 06:59
Intake Total 4560 / 4560 4100 / 4100 250 / 250
Output Total 5125 / 5125 1155 / 1155
Balance -565 / -565 2945 / 2945 250 / 250
Review of Systems
-
History Source: Patient
Constitutional: Reports No Symptoms
EENT: Reports No Symptoms Reported
Respiratory: Reports No Symptoms
Cardiac: Reports No Symptoms
Abdomen/GI: Reports No Symptoms
Genitourinary: Reports Frequency
Physical Exam
-
General: Well Developed
HEENT: Normocephalic
Respiratory: Clear to Auscultation
Cardiac: Regular Rhythm
GI: Soft and Tender (Only around incision)
Skin: Warm
Neuro: Awake
Psych: Calm
Data Reviewed
-
CT Scan: Image personally visualized and interpreted and Report Reviewed by me
Labs: Labs Reviewed by me
[2023-07-30 16:04] LABS: Hematocrit 23.1 % (39.0-52.0)
[2023-07-30 16:12] LABS: Hemoglobin 6.7 g/dL (13.0-18.0)
[2023-07-30] MEDS: TRANEXAMIC ACID 110 MG IV (16:57)
--- NOTE | 2023-07-30 21:52 | W.PN.UPDATE ---
Update Note
Progress Note Update
Notified that Hb was 6.7 s/p second pRBC; ordered for TXA and third pRBC; seen patient at bedside, clinically doing well without complaints, passed a few more BMs small volume with dark blood, nothing bright red, abdomen benign; continue holding AC
[2023-07-31] MEDS: TYLENOL PO ×5 (00:10→20:53)
[2023-07-31 03:17] VITALS: BP 141/92
[2023-07-31] MEDS: NSS 1000 IV (04:39)
[2023-07-31 04:50] VITALS: BMI 27.9
[2023-07-31 05:58] LABS: Hematocrit 25.2 % (39.0-52.0); Hemoglobin 7.6 g/dL (13.0-18.0); Mean Corp Hgb Conc. 30.2 g/dL (33.0-37.0); Mean Corpuscular Hgb 21.5 pg (27.0-31.0); Mean Corpuscular Volume 71.2 fL (80.0-94.0); Mean Platelet Volume 10.4 fL (7.4-10.4); Platelet Count 446 10^3/uL (130-400); Red Blood Cell Count 3.54 10^6/uL (4.70-6.10); Red Cell Dist. Width 25.3 % (11.5-14.5); White Blood Cell Count 14.6 10^3/uL (4.8-10.8)
[2023-07-31 06:31] LABS: Blood Urea Nitrogen 14 mg/dl (9-20); Calcium 10.3 mg/dl (8.4-10.2); Carbon Dioxide 24 mmol/L (22-30); Chloride 108 mmol/L (98-107); Estimated Creatinine Clearance 101 ml/min; Glucose 85 mg/dl (70-99); Potassium 4.2 mmol/L (3.5-5.1); Sodium 135 mmol/L (135-145); eGFR > 60.00
[2023-07-31 07:49] VITALS: BP 144/100
[2023-07-31] MEDS: PROTONIX 40 MG PO (07:54)
[2023-07-31] MEDS: ENTEREG 12 MG PO ×2 (07:54→20:52)
--- NOTE | 2023-07-31 11:43 | W.PN.CRS1 ---
Today's Communication / Plan
-
Recheck hemoglobin
Assessment/Plan
-
47 yo male presenting for operative management of partial obstructing ascending colon cancer with liver mets now POD #4 Robotic right colectomy with intracorporeal anastomosis and liver biopsy
1. Vitals now normal. Tachycardia resolved.
2. WBC 14.6 from 13.7. Monitor.
3. Transfused with 3 units packed red blood cells and txa given yesterday. Hemoglobin now 7.6. Recheck around noon.
4. On a low residue diet.
5. Appreciate hospitalist/nephrology for management of electrolytes.
6. Pain management: Tylenol, Toradol scheduled. PRN Dilaudid.
7. OR path pending
8. SCD's while in bed for VTE ppx, holding Lovenox given anemia. If hemoglobin is stable will restart .
Subjective Data
Procedure
07/27/23 Robotic right colectomy with intracorporeal anastomosis and liver biopsy
Subjective Data
Date of Service: July 31, 2023
Patient states he is having dark brown bowel movements and that he has not seen any blood today. He overall feels okay and his pain is controlled. He is tolerating a low residue diet.
Objective Data
-
Vital Signs
Temp Pulse Resp BP Pulse Ox
99 F 96 18 144/100 99
07/31/23 07:49 07/31/23 07:49 07/31/23 07:49 07/31/23 07:49 07/31/23 08:00
Intake & Output
07/30/23 07/31/23 08/01/23
06:59 06:59 06:59
Intake Total 4100 / 4100 3690 / 3690
Output Total 1155 / 1155 4550 / 4550
Balance 2945 / 2945 -860 / -860
Intake:
Oral fluids 1860 / 1860 1120 / 1120
IV fluids (Total) 1740 / 1740 1350 / 1350
IV piggybacks 220 / 220
Blood products 250 / 250 750 / 750
Blood Product Amount Infused ( 250 / 250 250 / 250
mL)
Packed Rbc Leukoreduced Unit 0 / 0
[id number]
Packed Rbc Leukoreduced Unit 250 / 250
[id number]
Packed Rbc Leukoreduced Unit 250 / 250
[id number]
Output:
Urine, Voided 1155 / 1155 4550 / 4550
Other:
Number of approximated MODERATE 3
amounts of urine
Number of unmeasured liquid
stools
Rectum 1 1
Lab Results
07/31/23 05:39
07/31/23 05:39
Physical Exam
-
General: No Acute Distress and AOx3
Abdomen: Soft, Non Distended and Non Tender
Incision: Clear, Dry, Intact
--- NOTE | 2023-07-31 11:57 | CM ---
Reviewed the chart notes. Patient has received 3 units PRBC. Diet advanced to low residual. CM continues to be available to patient/family and is monitoring medical plan for needs at discharge.
Plan: Discharge to home when medically stable. No needs anticipated at this time.
--- NOTE | 2023-07-31 12:05 | W.PN.NEPH.PH ---
Today's Communication / Plan
-
cap IVF
Assessment/Plan
-
Impression:
Status post robotic right colectomy with intracorporeal anastomosis and liver biopsy 07/27/23 for fungating villous adenomatous colon mass with hepatic metastasis
Hypercalcemia
Hyponatremia
Acute kidney
Anemia
Plan:
-cap IVF
-follow BMP
-can use lasix prn for edema
-follow h/h
-await liver path
-await PTHrP
-
-
Date of Service: July 31, 2023
CC / HPI / ROS
-
Chief Complaint:
Hypercalcemia
Acute kidney
History of Present Illness:
Hemodynamically stable
Creatinine improved to 1.0
Serum calcium down from 15- to 10.6
Review of Systems:
Grossly nonoliguric
No chest pain or shortness of breath
Flatus
Postoperative abdominal pain improved
mild LE edema
Labs
-
Labs:
WBC 14.6 10^3/uL (4.8-10.8) H 07/31/23 05:39
RBC 3.54 10^6/uL (4.70-6.10) L 07/31/23 05:39
Plt Count 446 10^3/uL (130-400) H 07/31/23 05:39
Sodium 135 mmol/L (135-145) 07/31/23 05:39
Potassium 4.2 mmol/L (3.5-5.1) 07/31/23 05:39
Chloride 108 mmol/L (98-107) H 07/31/23 05:39
Carbon Dioxide 24 mmol/L (22-30) 07/31/23 05:39
BUN 14 mg/dl (9-20) 07/31/23 05:39
Creatinine 1.0 mg/dL (0.7-1.3) 07/31/23 05:39
eGFR > 60.00 07/31/23 05:39
Glucose 85 mg/dl (70-99) 07/31/23 05:39
Calcium 10.3 mg/dl (8.4-10.2) H 07/31/23 05:39
Phosphorus 2.7 mg/dl (2.5-4.5) 07/29/23 07:19
Albumin 3.1 g/dl (3.5-5.0) L 07/30/23 05:12
Physical Exam
-
Vital Signs:
Vital Signs
Temp Pulse Resp BP Pulse Ox
99 F 96 18 144/100 99
07/31/23 07:49 07/31/23 07:49 07/31/23 07:49 07/31/23 07:49 07/31/23 08:00
Cardiovascular:: Regular rate and rhythm
Respiratory:: Bilateral: CTA
Lung Excursion:: Normal
Abdomen:: Nontender and Soft
Bowel Sounds:: Normal
Extremity Edema:: +1: Bilateral:
[2023-07-31 12:28] LABS: Hematocrit 26.8 % (39.0-52.0); Hemoglobin 7.9 g/dL (13.0-18.0)
--- NOTE | 2023-07-31 13:24 | W.PN.HOSP.TC ---
Today's Communication/Plan
-
monitor hgb
stop fluids, monitor Ca
Assessment / Plan
Assessment / Plan
47-year-old male who underwent a screening colonoscopy on 29 June finding a fungating villous adenomatous mass in nearly obstructing the transverse colon with biopsy results showing a moderately dysplastic adenocarcinoma with high-grade
dysplasia he underwent a robotic right colectomy with intracorporeal anastomosis and liver biopsy with suspect findings of bilobar hepatic metastasis and bulky tumor in the ascending colon with partial obstruction being found as stated above
operative intervention he had minimal blood loss.� Recent history includes a 25 pound weight loss in the last 5 months and also being found to be significantly anemic with microcytosis his baseline CEA level was was 6.34 and a preadmission testing
calcium was measured at 12.1 postoperatively his hemoglobin is 7.3 with microcytosis and hypochromia review of preadmission testing also noted anisocytosis and target cells noted.� His creatinine today is 1.4 and preadmission creatinine of 1.0.�
Present potassium is 5.4 and pending repeat along with a repeat calcium now measured at 14.9 with an ionized calcium of 14.4.
On review of family history in his parents there is diabetes mellitus there is no prior history of GI malignancies.� Patient's mother has had prior hypercalcemia and kidney stones.� The patient himself admits to taking Tums at least 2 tablets on a
daily basis for some time.
Status post robotic right colectomy with intracorporeal anastomosis and liver biopsy
-Moderately differentiated adenocarcinoma of the ascending colon with suspected bilobar hepatic metastasis
-No transaminitis
-F/u Liver bx
Medical consultation in relation to�electrolyte abnormalities:
-Hyperkalemia/dose of Lokelma given and resolved
-Hypercalcemia�also noted preoperatively/IV saline at increased volume for the last 12 hours with IV Lasix given
�Improving
- PTH level suppressed/vitamin D level diminished/must entertain his malignancy contributing/bisphosphonate/pamidronate given; stop IVF and monitor
-Will need to curtail Tums taken as outpatient
-Have asked nephrology input given degree of hypercalcemia may be instigating his AKIokay for low-dose Lasix for edema
� Await PTHrP
Acute kidney injury
-Noted postoperatively creatinine of 1.4>> 1.5/preadmission testing of 1.0
-IV fluids next 24 hours
-improving
Anemia, acute blood loss anemia
-Hypochromic microcytic
-Presumably iron loss from occult GI process/CA as well as possible acute bleed
-s/p 3 u prbc; maintain hgB > 7; trend cbc
-cont iv iron
-stopped dvt ppx and received TXA 07/29
leukocytosis
-most likely 2/2 to acute stress
-monitor WBC, fever curve
Thank you for opportunity to see this patient and will follow with you
Anticipated Discharge: > 48 hours
Subjective/Interval History
-
Date of Service: July 31, 2023
BRBPR resolving; stool remains black
Objective Data
-
Labs:
Laboratory Results
07/31/23 07/31/23
05:39 12:16
WBC 14.6 H
Hgb 7.6 L 7.9 L
Hct 25.2 L 26.8 L
Plt Count 446 H
Sodium 135
Potassium 4.2
Chloride 108 H
Carbon Dioxide 24
BUN 14
Creatinine 1.0
Glucose 85
Calcium 10.3 H
Vital Signs:
Vital Signs
Temp Pulse Resp BP Pulse Ox
99 F 96 18 144/100 99
07/31/23 07:49 07/31/23 07:49 07/31/23 07:49 07/31/23 07:49 07/31/23 08:00
I&O
07/30/23 07/31/23 08/01/23
06:59 06:59 06:59
Intake Total 4100 / 4100 3690 / 3690
Output Total 1155 / 1155 4550 / 4550
Balance 2945 / 2945 -860 / -860
Review of Systems
-
History Source: Patient
All other systems: Not reviewed unless documented
Physical Exam
-
General: Well Developed
HEENT: Normocephalic
Respiratory: Clear to Auscultation
Cardiac: Regular Rhythm
GI: Soft and Tender (Only around incision)
Skin: Warm
Neuro: Awake
Psych: Calm
Data Reviewed
-
CT Scan: Image personally visualized and interpreted and Report Reviewed by me
Labs: Labs Reviewed by me
[2023-07-31] MEDS: FERRLECIT 110 MG IV (14:24)
[2023-07-31 15:22] VITALS: BP 129/77
[2023-07-31] MEDS: LOVENOX 40 MG SC (17:12)
[2023-07-31] MEDS: TYLENOL 650 MG PO (17:12)
[2023-07-31 23:18] VITALS: BP 153/85
[2023-08-01] MEDS: TYLENOL PO ×3 (00:13→11:46)
--- NOTE | 2023-08-01 03:34 | DOWNTIME ---
There was a Angiodroid Client Cushion Maker Downtime on 08/01/2023 from 0100 to 08/01/2023 at 0322. Downtime documentation of patient's care, including medication administrations, has been reconciled in the electronic record per guidelines. Refer to the
patient's paper chart under the miscellaneous tab to see printed paper medication records and downtime forms.
[2023-08-01] MEDS: TYLENOL 650 MG PO (04:19)
[2023-08-01 06:00] VITALS: BMI 27.4
[2023-08-01 06:23] LABS: Hematocrit 26.2 % (39.0-52.0); Hemoglobin 7.6 g/dL (13.0-18.0); Mean Corpuscular Hgb 21.3 pg (27.0-31.0); Mean Corpuscular Volume 73.4 fL (80.0-94.0); Mean Platelet Volume 10.4 fL (7.4-10.4); Platelet Count 483 10^3/uL (130-400); Red Blood Cell Count 3.57 10^6/uL (4.70-6.10); Red Cell Dist. Width 26.6 % (11.5-14.5)
[2023-08-01 06:43] LABS: Albumin 3.4 g/dl (3.5-5.0); Blood Urea Nitrogen 15 mg/dl (9-20); Carbon Dioxide 23 mmol/L (22-30); Chloride 106 mmol/L (98-107); Estimated Creatinine Clearance 101 ml/min; Glucose 73 mg/dl (70-99); Phosphorus 2.3 mg/dl (2.5-4.5); Sodium 135 mmol/L (135-145); eGFR > 60.00
[2023-08-01 06:49] LABS: Potassium 4.2 mmol/L (3.5-5.1)
[2023-08-01 07:49] VITALS: BP 142/91
[2023-08-01] MEDS: SODIUM PHOSPHATE 255 MEQ IV (09:18)
[2023-08-01] MEDS: FLUSH (NSS) 1 FLUSH IV (09:18)
[2023-08-01] MEDS: PROTONIX 40 MG PO (09:19)
[2023-08-01] MEDS: ENTEREG 12 MG PO (09:19)
--- NOTE | 2023-08-01 09:35 | W.PN.CRS1 ---
Today's Communication / Plan
-
possible d/c later today
Assessment/Plan
-
47 yo male presenting for operative management of partial obstructing ascending colon cancer with liver mets now POD #5 Robotic right colectomy with intracorporeal anastomosis and liver biopsy
1. Vitals normal.
2. WBC 17.5, will monitor.
3. Hemoglobin has now stabilized at 7.6.
4. On a low residue diet.
5. Appreciate hospitalist/nephrology for management of electrolytes.
6. Pain management: Tylenol, Toradol scheduled. PRN Dilaudid.
7. OR path pending
8. SCD's while in bed for VTE ppx, on Lovenox.
9. Possible d/c later today if he feels up for it. I will check back in the afternoon. Patient states he would feel better at home. Discharge instructions discussed with patient and family at bedside. All questions answered.
Subjective Data
Procedure
07/27/23 Robotic right colectomy with intracorporeal anastomosis and liver biopsy
Subjective Data
Date of Service: August 01, 2023
Patient states he has not had a bowel movement today. He has flatus. He is walking the halls. He is tolerating a diet. He denies pain.
Objective Data
-
Vital Signs
Temp Pulse Resp BP Pulse Ox
98.6 F 93 18 142/91 100
08/01/23 07:49 08/01/23 07:49 08/01/23 07:49 08/01/23 07:49 08/01/23 07:49
Intake & Output
07/31/23 08/01/23 08/02/23
06:59 06:59 06:59
Intake Total 3690 / 3690 2490 / 2490
Output Total 4550 / 4550 800 / 800
Balance -860 / -860 1690 / 1690
Intake:
Oral fluids 1120 / 1120 1900 / 1900
IV fluids (Total) 1350 / 1350 480 / 480
IV piggybacks 220 / 220 110 / 110
Blood products 750 / 750
Blood Product Amount Infused ( 250 / 250
mL)
Packed Rbc Leukoreduced Unit 0 / 0
[id number]
Packed Rbc Leukoreduced Unit 250 / 250
[id number]
Output:
Urine, Voided 4550 / 4550 800 / 800
Other:
Number of approximated MODERATE 2
amounts of urine
Number of unmeasured liquid
stools
Rectum 1 1
Lab Results
08/01/23 04:56
08/01/23 04:56
Physical Exam
-
General: No Acute Distress and AOx3
Abdomen: Soft, Non Distended and Non Tender
Skin: Warm and Dry
Incision: Clear, Dry, Intact
--- NOTE | 2023-08-01 10:25 | W.PN.NEPH.PH ---
Today's Communication / Plan
-
Stable for discharge
Assessment/Plan
-
Impression:
Status post robotic right colectomy with intracorporeal anastomosis and liver biopsy 07/27/23 for fungating villous adenomatous colon mass with hepatic metastasis
Hypercalcemia
Hyponatremia
Acute kidney
Anemia
Plan:
-Hypercalcemia resolved
-CHANNING
-Stable for discharge from nephrology standpoint
-await PTHrP
-
-
Date of Service: August 01, 2023
CC / HPI / ROS
-
Chief Complaint:
Hypercalcemia
Acute kidney
History of Present Illness:
Hemodynamically stable
Creatinine improved to 1.0
Serum calcium down from 15- to 10
Review of Systems:
Grossly nonoliguric
No chest pain or shortness of breath
Flatus
Postoperative abdominal pain improved
mild LE edema
Labs
-
Labs:
WBC 17.0 10^3/uL (4.8-10.8) H 08/01/23 04:56
RBC 3.57 10^6/uL (4.70-6.10) L 08/01/23 04:56
Hgb 7.6 g/dL (13.0-18.0) L 08/01/23 04:56
Hct 26.2 % (39.0-52.0) L 08/01/23 04:56
Plt Count 483 10^3/uL (130-400) H 08/01/23 04:56
Sodium 135 mmol/L (135-145) 08/01/23 04:56
Potassium 4.2 mmol/L (3.5-5.1) 08/01/23 04:56
Chloride 106 mmol/L (98-107) 08/01/23 04:56
Carbon Dioxide 23 mmol/L (22-30) 08/01/23 04:56
BUN 15 mg/dl (9-20) 08/01/23 04:56
Creatinine 1.0 mg/dL (0.7-1.3) 08/01/23 04:56
eGFR > 60.00 08/01/23 04:56
Glucose 73 mg/dl (70-99) 08/01/23 04:56
Calcium 10.0 mg/dl (8.4-10.2) 08/01/23 04:56
Phosphorus 2.3 mg/dl (2.5-4.5) L 08/01/23 04:56
Albumin 3.4 g/dl (3.5-5.0) L 08/01/23 04:56
Physical Exam
-
Vital Signs:
Vital Signs
Temp Pulse Resp BP Pulse Ox
98.6 F 93 18 142/91 100
08/01/23 07:49 08/01/23 07:49 08/01/23 07:49 08/01/23 07:49 08/01/23 07:49
Cardiovascular:: Regular rate and rhythm
Lung Excursion:: Normal
Abdomen:: Nontender and Soft
Bowel Sounds:: Normal
Extremity Edema:: None: Bilateral:
Deras Catheter: No
--- NOTE | 2023-08-01 10:51 | W.DS.TRANS ---
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
-
Discharge Instructions:
Sleep Apnea Risk Low
Discharge Diagnosis/Procedures Robotic right colectomy with intracorporeal
anastomosis and liver biopsy
Diet Low Residue
Activity No strenuous activity
Additional Activity No lifting over 10lbs (gallon of milk)
Driving Restrictions No driving for 1 week
Bathing Restrictions OK to Shower
Blood Work BMP and CBC in 1 week
Wound Care Allow glue to naturally fall off. Do not pick at
incisions. Okay to shower.
Instructions: Low Fiber Diet
Stand-Alone Forms:
Changes to Home Medications: Yes
Discharge Medications:
DC Medications w/original date entered in [facility]
Multivitamin Supplement 1 tab PO DAILY Supplement 07/23/23
cetirizine 10 mg capsule (Zyrtec) 10 mg PO DAILY PRN allergies 07/23/23
pantoprazole 40 mg tablet,delayed release (Protonix) 40 mg PO DAILY GERD 07/23/23
triamcinolone acetonide 55 mcg nasal spray aerosol (Nasacort) 1 spray intranasal DAILY PRN allergies 07/23/23
tramadol 50 mg tablet 50 mg PO Q6H PRN Pain #20 tabs 08/01/23
Home Medication Changes
tramadol 50 mg tablet 50 mg PO Q6H PRN Pain #20 tabs 08/01/23
Pending Results: Yes
Additional Pending Results:
OR pathology
--- NOTE | 2023-08-01 11:40 | CM ---
Plan: discharge to home today without services; patient stated his brother will provide transport home
--- NOTE | 2023-08-01 12:11 | W.PN.HOSP.TC ---
Today's Communication/Plan
-
F/u CBC, CMP closely for WBC, HgB, Ca, Phosph,
Assessment / Plan
Assessment / Plan
47-year-old male who underwent a screening colonoscopy on 29 June finding a fungating villous adenomatous mass in nearly obstructing the transverse colon with biopsy results showing a moderately dysplastic adenocarcinoma with high-grade
dysplasia he underwent a robotic right colectomy with intracorporeal anastomosis and liver biopsy with suspect findings of bilobar hepatic metastasis and bulky tumor in the ascending colon with partial obstruction being found as stated above
operative intervention he had minimal blood loss.� Recent history includes a 25 pound weight loss in the last 5 months and also being found to be significantly anemic with microcytosis his baseline CEA level was was 6.34 and a preadmission testing
calcium was measured at 12.1 postoperatively his hemoglobin is 7.3 with microcytosis and hypochromia review of preadmission testing also noted anisocytosis and target cells noted.� His creatinine today is 1.4 and preadmission creatinine of 1.0.�
Present potassium is 5.4 and pending repeat along with a repeat calcium now measured at 14.9 with an ionized calcium of 14.4.
On review of family history in his parents there is diabetes mellitus there is no prior history of GI malignancies.� Patient's mother has had prior hypercalcemia and kidney stones.� The patient himself admits to taking Tums at least 2 tablets on a
daily basis for some time.
Status post robotic right colectomy with intracorporeal anastomosis and liver biopsy
-Moderately differentiated adenocarcinoma of the ascending colon with suspected bilobar hepatic metastasis
-No transaminitis
-F/u Liver bx
Medical consultation in relation to�electrolyte abnormalities:
-Hyperkalemia/dose of Lokelma given and resolved
-Hypercalcemia�also noted preoperatively/IV saline at increased volume for the last 12 hours with IV Lasix given
�Improving
- PTH level suppressed/vitamin D level diminished/must entertain his malignancy contributing/bisphosphonate/pamidronate given; stop IVF and monitor; encouraged adequate hydration outpatient
-Will need to curtail Tums taken as outpatient
-Have asked nephrology input given degree of hypercalcemia may be instigating his AKIokay for low-dose Lasix for edema
� Await PTHrP
-F/u Nephrology outpatient
-F/u CMP outpatient
#Hypophosphatemia
-monitor and replete
Acute kidney injury
-Noted postoperatively creatinine of 1.4>> 1.5/preadmission testing of 1.0
-IV fluids next 24 hours
-improving
Anemia, acute blood loss anemia
-Hypochromic microcytic
-Presumably iron loss from occult GI process/CA as well as possible acute bleed
-s/p 3 u prbc; maintain hgB > 7; trend cbc
-cont iv iron; hold on dc as to assess for black stool and possible bleeding
-stopped dvt ppx and received TXA 07/29; hgb remained stable after restarting lovenox; Can f/u cbc in 3-5 days or present back to the hospital if recurrence of bloody stools
leukocytosis
-most likely 2/2 to acute stress
-monitor WBC, fever curve
-f/u cbc outpatient
No objections to dc
Thank you for opportunity to see this patient and will follow with you
Anticipated Discharge: Today
Subjective/Interval History
-
Date of Service: August 01, 2023
black stool, no further evidence of BRBPR
Objective Data
-
Labs:
Laboratory Results
08/01/23
04:56
WBC 17.0 H
Hgb 7.6 L
Hct 26.2 L
Plt Count 483 H
Sodium 135
Potassium 4.2
Chloride 106
Carbon Dioxide 23
BUN 15
Creatinine 1.0
Glucose 73
Calcium 10.0
Vital Signs:
Vital Signs
Temp Pulse Resp BP Pulse Ox
98.6 F 93 18 142/91 100
08/01/23 07:49 08/01/23 07:49 08/01/23 07:49 08/01/23 07:49 08/01/23 07:49
I&O
07/31/23 08/01/23 08/02/23
06:59 06:59 06:59
Intake Total 3690 / 3690 2490 / 2490
Output Total 4550 / 4550 800 / 800
Balance -860 / -860 1690 / 1690
Review of Systems
-
History Source: Patient
All other systems: Not reviewed unless documented
Physical Exam
-
General: Well Developed
HEENT: Normocephalic
Respiratory: Clear to Auscultation
Cardiac: Regular Rhythm
GI: Soft and Tender (Only around incision)
Skin: Warm
Neuro: Awake
Psych: Calm
[2023-08-01 13:37] VITALS: BP 137/88
--- NOTE | 2023-08-20 11:53 | W.DCSUMMARY ---
Discharge Summary
Discharge Data
Date of Admission: 07/27/23
Date of Discharge: 08/01/23
-
Pending Results: Yes
Additional Pending Results:
OR pathology 57-year-old male
Hospital Course
Presented for scheduled surgery for a robotic right colectomy and liver biopsy due to a partially obstructing ascending colon cancer and liver metastasis. This was performed by Dr. Disla on 07/27/2023. He was brought back to the medical surgical
floor. The following day he was started on a clear liquid diet and his diet was gradually advanced to a low residue diet. He did have hypercalcemia and hyperkalemia which required a nephrology consultation. Throughout his stay his hemoglobin had
drifted down to 6.7 and ultimately required 3 units of packed red blood cells. He had some bloody bowel movements associated with this which eventually resolved. On postop day 5 it was determined the patient be discharged home all discharge
instructions were discussed with the patient and family at bedside. OR pathology was pending at the time of discharge.
Discharge Plan
-
Patient Disposition: Home (Routine Discharge)
Discharge Diagnosis/Procedures: Robotic right colectomy with intracorporeal anastomosis and liver biopsy
Diet: Low Residue
Activity: No strenuous activity
Additional Activity: No lifting over 10lbs (gallon of milk)
Driving Restrictions: No driving for 1 week
Bathing Restrictions: OK to Shower
Blood Work: CMP and CBC in 1 week
Wound Care: Allow glue to naturally fall off. Do not pick at incisions. Okay to shower.
Activity Restrictions/Additional Instructions:
Tylenol as needed for pain. Maximum amount of Tylenol per day is 4,000mg/24 hours.
Instructions: Low Fiber Diet
Referrals:
Vicente Disla MD [Active] - in two weeks
Morro Santiago MD [Family Provider] - in one week
Prescriptions:
Continued
pantoprazole [Protonix] 40 mg Tablet,Delayed Release (Dr/Ec)
40 mg PO DAILY
triamcinolone acetonide [Nasacort] 55 mcg Aerosol,[place]
1 spray INTRANASAL DAILY PRN (Reason: allergies)
Zyrtec 10 mg Capsule
10 mg PO DAILY PRN (Reason: allergies)
Discontinued
metronidazole 500 mg Tablet
500 mg PO DIRECTED
neomycin 500 mg Tablet
500 mg PO DIRECTED
Sutab
1 dose PO DIRECTED
Tylenol
1,000 mg PO .Q8H PRN (Reason: pain)
Discharge Orders:
Discharge Patient (As Directed); Ordered 08/01/23
Ordered By: Jo-Ann Saleh
Discharge Date and Time
Discharge Date/Time: 08/01/23 14:14
Print Language: GAMBIAN
== END 2023-08-01 14:14 | disposition home or self-care (01) | DRG 330 ==
LOC: 2 SOUTH 05:57
PROVIDERS: Internal Medicine; Physician Assistant; Registered Nurse; Specialist; ADMITTING PHYSICIAN Surgery; CONSULT PHYSICIAN Specialist; FAMILY PHYSICIAN Family Medicine; OTHER PHYSICIAN Internal Medicine
PROC: 8E0W0CZ Robotic Assisted Procedure of Trunk Region, Open Approach (ICD-10-PCS; 2023-07-27)
PROC: 0DTF0ZZ Resection of Right Large Intestine, Open Approach (ICD-10-PCS; 2023-07-27)
PROC: 0FB00ZX Excision of Liver, Open Approach, Diagnostic (ICD-10-PCS; 2023-07-27)
PROC: 30233N1 Transfusion of Nonautologous Red Blood Cells into Peripheral Vein, Percutaneous Approach (ICD-10-PCS; 2023-07-27)
DX: C18.2 Malignant neoplasm of ascending colon (principal); C78.7 Secondary malignant neoplasm of liver and intrahepatic bile duct; N17.9 Acute kidney failure, unspecified; E87.1 Hypo-osmolality and hyponatremia; D62 Acute posthemorrhagic anemia; E83.52 Hypercalcemia; E87.5 Hyperkalemia
CPT/HCPCS: 88307; 88309; 36415; 80048; 80053; 80069; 81003; 81015; 82306; 82330; 82378; 82570; 83036; 83519; 83540; 83550; 83735; 83935; 83970; 84100; 84300; 84550; 85014; 85018; 85025; 85027; 85610; 85730; 86850; 86900; 86901; 86920; 88313; 88341; 88342; 93005; J1335; J2430; J2916; P9016

== ENCOUNTER 2023-08-14 17:20 | Inpatient (IN) | payer OTHER, SELFPAY ==
[2023-08-14 11:19] VITALS: BP 140/83
--- NOTE | 2023-08-14 12:21 | ED.GENMED ---
History of Present Illness
General
Chief Complaint: Abdominal Pain
Source: patient
Exam Limitations: none
Time Seen by Provider: 08/14/23 11:46
Nursing documentation reviewed up to this point in time: agreed with
Travel History
Have you had any contact with someone who has COVID-19?: No
Do you have any symptoms of coronavirus? Fever > 100 degrees, chills, cough, shortness of breath, sore throat, loss of taste or smell, muscle aches, or headache?: No
History of Present Illness
History of Present Illness:
47-year-old male with past medical history of colon tumor status post right-sided colectomy 1 month ago. Patient notes that he has been healing well since but developed discomfort to the mid abdomen yesterday. Has been feeling somewhat constipated
but has been having bowel movements. Denies any chest pain shortness of breath vomiting.
Review of Systems
Review of Systems
Allergies reviewed?: Yes
All Other Systems: ROS reviewed and negative except as documented in HPI and ROS
Phy Exam
Physical Exam
Physical Exam:
GENERAL: Alert , in no apparent distress
EYE: pupils equal and reactive
NECK: Supple, no significant adenopathy.
ENT: o/p clr, mmm.
CARDIAC: Regular rate and rhythm .
LUNGS: Clear breath sounds bilaterally, no acute respiratory distress, no wheezes/rales/rhonchi
ABDOMEN: Mild discomfort of the upper abdomen., no r/g, no cvat
NEUROLOGICAL: Alert and oriented, no focal neuro deficits
SKIN: Warm and dry, skin intact.
MUSCULOSKELETAL: No edema, well perfused.
PSYCH: Normal and appropriate interaction.
Course
Orders/Labs/Results
Orders:
Orders
08/14/23 12:18
Electrocardiogram (*1) Stat
Reason for Study: Abdominal Pain
CT Abd/pel W Iv And Oral Contr Urgent
Comment:
Reason For Exam: abd pain, hx of partial colectomy
EKG- Treatment ONCE
0.9% Sodium Chloride 1000 ml [Nss] 1,000 ml IV BOLUS
Iohexol [Omnipaque] See Protocol PO NOW STA
08/14/23 12:44
Complete Blood Count/With Diff Urgent
Comprehensive Metabolic Panel Urgent
Lactic Acid Urgent
Lipase Urgent
Urinalysis Reflex To Culture Urgent
Date Specimen was Collected: 08/14/23
Time Specimen was Collected: 12:31
08/14/23 Dinner
NPO
Allow oral meds: Yes
Allow clear liquids: Sips of Clears
08/14/23 15:05
0.9% Sodium Chloride 1000 ml [Nss] 1,000 ml IV BOLUS
08/14/23 15:58
Piperacillin/Tazo 4.5 Gram [Zosyn] 4.5 gram in 100 ml IV NOW
08/14/23 16:09
Blood Culture Q30M
TIANNA Source: Blood/Venous
Specimen Description:
Blood Culture Q30M
TIANNA Source: Blood/Venous
Specimen Description:
08/14/23 16:59
Pamidronate Disodium [Aredia] 60 mg 0.9% Sodium Chloride 250 ml [Nss] 250 ml IV ONCE
08/14/23 17:07
Admit/Transfer Patient As Directed
Co-Sign Provider:
Level of Care: Inpatient admission
Assign to:: Medical/Surgical
Physician / Group: toby
Diagnosis: hypercalcemia
Reason for Hospitalization: abdominal pain/hypercalcemia
Expected length of stay greater than two midnights?: Yes
ELOS- Estimated Length of Stay in days: 2
I certify the patient meets the requirements for IP care: Yes
08/14/23 17:08
Code Status As Directed
Resuscitation Status: Full Code
08/14/23 17:15
0.9% Sodium Chloride 1000 ml [Nss] 1,000 ml IV 150 mls/hr
08/14/23 19:31
Activity As Directed
Activity Level: As Tolerated
Vital Signs As Directed
Frequency: Per unit guidelines
DX Deep Vein Thrombosis Video Routine
08/14/23 19:34
Cetirizine HCl [Zyrtec] 10 mg PO DAILYPRN PRN
08/14/23 19:51
Lactic Acid Q6H
08/14/23 20:00
Heparin 5,000 units SC Q12
08/14/23 22:00
Piperacillin/Tazo 3.375 Gram [Zosyn] 3.375 gram in 50 ml IV Q6H
08/15/23 02:04
Complete Blood Count/With Diff IN AM
Comprehensive Metabolic Panel IN AM
Lactic Acid Q6H
08/15/23 08:00
Pantoprazole [Protonix] 40 mg PO DAILY
Abnormal Lab Results
08/14/23
12:44
WBC 22.3 H 10^3/uL
(4.8-10.8)
Hgb 11.0 L g/dL
(13.0-18.0)
Hct 36.9 L %
(39.0-52.0)
MCV 76.6 L fL
(80.0-94.0)
MCH 22.8 L pg
(27.0-31.0)
MCHC 29.8 L g/dL
(33.0-37.0)
RDW 26.1 H %
(11.5-14.5)
Plt Count 661 H 10^3/uL
(130-400)
MPV 10.9 H fL
(7.4-10.4)
Abs Immat Gran (auto) 0.1 H 10^3/uL
(0-0.05)
Absolute Neuts (auto) 19.8 H 10^3/uL
(1.4-6.5)
Absolute Lymphs (auto) 0.9 L 10^3/uL
(1.2-3.4)
Absolute Monos (auto) 1.4 H 10^3/uL
(0.1-0.6)
Neutrophils % 88.7 H %
(42.2-75.2)
Lymphocytes % 4.0 L %
(20.5-51.1)
Sodium 132 L mmol/L
(135-145)
Potassium 5.3 H mmol/L
(3.5-5.1)
Glucose 100 H mg/dl
(70-99)
Lactic Acid 2.6 H mmol/L
(0.7-2.0)
Calcium 16.2 H* mg/dl
(8.4-10.2)
Alkaline Phosphatase 421 H U/L
(38-126)
Total Protein 8.8 H g/dl
(6.3-8.2)
08/14/23 12:44
08/14/23 12:44
Vital Signs
Initial and Last Documented VS:
Initial Vital Signs
Temp Pulse Resp BP Pulse Ox
99.2 F 136 20 140/83 100
08/14/23 11:19 08/14/23 11:19 08/14/23 11:19 08/14/23 11:19 08/14/23 11:19
Last Documented Vital Signs
Temp Pulse Resp BP Pulse Ox
98.7 F 104 18 126/91 99
08/15/23 07:30 08/15/23 07:30 08/15/23 07:30 08/15/23 07:30 08/15/23 07:30
MDM/Problems Addressed
MDM/Problems Addressed:
47-year-old male presenting to the emergency department today with concerns of epigastric discomfort over the past 24 hours. Denies vomiting has had nausea. Recent right-sided colectomy 2 weeks ago otherwise doing well until yesterday. On arrival
here patient is tachycardic was given fluids afebrile normal blood pressure white count 22.3 elevated lactic acid was given additional liter of fluid calcium elevated 16.2 nephrology was consulted in this regard was recently evaluated for this.
Urinalysis normal CT scan ordered for further assessment. Otherwise colorectal was notified about the patient shortly into ER stay due to his recent surgical procedure. CT without emergent findings or complications of his recent right-sided
colectomy. Patient does have mets to the liver again seen. Patient be admitted due to multiple lab abnormalities and vital sign abnormalities. Slight improvement throughout ER stay.
*Critical Care Note
Total Time (30-74mins, 75-104mins- exclusive of procedures): Not Applicable
ED Attending Note
-
Portions of this chart may have been created with voice recognition software.� Occasional wrong word or��sound alike� substitutions may have occurred due to the inherent limitations of voice recognition software.
Discharge Plan
Departure
Patient Disposition: Admit
Date of Disposition: 08/14/23
Time of Disposition: 16:06
Admit to: Med/Surg
Admit to doctor: Gerda
Presentation/result/management discussed w/ accepting MD/DO: Hospitalist
Patient with high blood pressure during this ER visit?: No
Condition: Good
Covid-19: Not Applicable
Discharge Problem:
Hypercalcemia, Acidosis, lactic, Abdominal pain
Interventions
Interventions:
*Risk Screen - Suicide Last Done: 08/14/23 18:28
*General Assessment Last Done: 08/14/23 13:25
*Neglect/Abuse Screening Last Done: 08/14/23 13:25
ED- Fall Risk Assessment Last Done: 08/14/23 13:27
*ED COVID-19 Vaccine History Last Done: 08/14/23 11:19
*Nursing Disposition Last Done: 08/14/23 19:12
QM-Rhytbu-Nzlxdlralq Assessment Last Done: 08/14/23 13:28
Discharge Date and Time
Discharge Date/Time: 08/14/23 19:13
[2023-08-14 12:29] VITALS: BMI 27.5
[2023-08-14] MEDS: OMNIPAQUE 50 ML PO (12:43)
[2023-08-14] MEDS: NSS 1000 IV ×3 (12:43→17:33)
[2023-08-14 12:58] LABS: % Basophils 0.3 % (0-2); % Eosinophils 0.1 % (0-6); % Immature Granulocytes 0.4 % (0-0.5); % Monocytes 6.5 % (1.7-9.3); % Neutrophils 88.7 % (42.2-75.2); Absolute Basophils 0.1 10^3/uL (0-0.2); Absolute Immature Granulocytes 0.1 10^3/uL (0-0.05); Absolute Lymphocytes 0.9 10^3/uL (1.2-3.4); Absolute Monocytes 1.4 10^3/uL (0.1-0.6); Absolute Neutrophils 19.8 10^3/uL (1.4-6.5); Hematocrit 36.9 % (39.0-52.0); Mean Corp Hgb Conc. 29.8 g/dL (33.0-37.0); Mean Corpuscular Hgb 22.8 pg (27.0-31.0); Mean Corpuscular Volume 76.6 fL (80.0-94.0); Mean Platelet Volume 10.9 fL (7.4-10.4); Nucleated Red Blood Cells % 0 % (-); Platelet Count 661 10^3/uL (130-400); Red Blood Cell Count 4.82 10^6/uL (4.70-6.10); Red Cell Dist. Width 26.1 % (11.5-14.5); Urine Albumin Trace (Neg - Trace); Urine Bilirubin Negative (Negative); Urine Character Clear (Clear); Urine Color Yellow; Urine Glucose Negative (Negative); Urine Ketone Negative (Negative); Urine Leukocyte Negative (Negative); Urine Nitrite Negative (Negative); Urine Occult Blood Negative (Negative); Urine Specific Gravity 1.015 (<1.030); Urine Urobilinogen Negative (Neg - 1+); Urine pH 6.5 (5.0-9.0); White Blood Cell Count 22.3 10^3/uL (4.8-10.8)
[2023-08-14 13:09] LABS: Lactic Acid 2.6 mmol/L (0.7-2.0)
[2023-08-14 13:25] LABS: ALT (SGPT) 46 U/L (0-50); AST (SGOT) 53 U/L (17-59); Albumin 4.7 g/dl (3.5-5.0); Alkaline Phosphatase 421 U/L (38-126); Blood Urea Nitrogen 13 mg/dl (9-20); Carbon Dioxide 22 mmol/L (22-30); Chloride 100 mmol/L (98-107); Estimated Creatinine Clearance 96 ml/min; Glucose 100 mg/dl (70-99); Lipase 233 U/L (23-300); Potassium 5.3 mmol/L (3.5-5.1); Sodium 132 mmol/L (135-145); Total Bilirubin 0.9 mg/dl (0.2-1.3); Total Protein 8.8 g/dl (6.3-8.2); eGFR > 60.00
[2023-08-14 13:35] LABS: Calcium 16.2 mg/dl (8.4-10.2)
--- NOTE | 2023-08-14 14:28 | CON.CRS ---
Consultation
-
Date/Time Consultation Requested: 08/14/2023, 13:45
Date/Time Consultation Performed: 08/14/2023, 15:00
Requesting Provider: Dameon Chapman PA-C
Performing Provider: Ricardo Toribio MD
Reason for Consultation: abdominal pain
Medical History
-
Chief Complaint: Abdominal pain
History of Present Illness:
47-year-old male with a past medical history of a recent robotic right colectomy due to partially obstructing ascending colon cancer with liver mets on 08/01/[address] Disla, presents to the emergency department due to abdominal pain. His
pathology was consistent with metastatic colonic adenocarcinoma. During his hospital admission for surgery, the patient developed hypercalcemia, hyponatremia, anemia with a hemoglobin of 6.7, and acute kidney injury with a creatinine of 1.5. He
was followed by both the hospitalist and nephrology during his stay. He was due to see oncology tomorrow.
The patient states his pain started last night. It originally started in the RUQ but has since migrated to the mid upper to left upper quadrant. His last bowel movement was this AM. He denies blood in the stool. He has no vomiting but did have some
nausea associated with the pain. He denies issues with urination. He does not feel bloated. He denies fevers/chills. His WBC is 22.3. He is tachycardic with a heart rate of 136. His blood pressure is normal. He remains afebrile. Potassium is
elevated at 5.3. His lactic acid is 2.6. Calcium is 16.2. Alkaline phosphate 421. He is currently awaiting on CT scan.
Past Medical History
Past Medical History: Cancer (Colon adenocarcinoma with hepatic mets)
Past Surgical History: Bowel Resection (robotic right colectomy due to partially obstructing ascending colon cancer with liver mets on 08/01/2023)
Social History
Tobacco: Non-Smoker
Alcohol: None
Drug: None
Family History
Family History: Reviewed & Not Pertinent
Allergies / Home Medications
Allergy/AdvReac Type Severity Reaction Status Date / Time
clams Allergy Nausea/DIAR Verified 08/14/23 11:24
LAUREN
pollen extracts Allergy Itching Verified 08/14/23 11:24
�Medication �Instructions �Recorded �Confirmed �Type
cetirizine 10 mg capsule (Zyrtec) 10 mg PO DAILY PRN allergies 07/23/23 08/14/23 History
pantoprazole 40 mg tablet,delayed 40 mg PO DAILY GERD 07/23/23 08/14/23 History
release (Protonix)
triamcinolone acetonide 55 mcg 1 spray intranasal DAILY PRN 07/23/23 08/14/23 History
nasal spray aerosol (Nasacort) allergies
Review of Systems
-
History Source: Patient
Abdomen/GI: Abdominal Pain
A 10 point review of systems was completed, and was negative except as per HPI.
Physical Exam
Vital Signs
Temp 99.2 F 08/14/23 11:19
Pulse 136 08/14/23 11:19
Resp Rate 20 08/14/23 11:19
Blood pressure 140/83 08/14/23 11:19
SaO2 100 08/14/23 11:19
08/13/23 08/14/23 08/15/23
06:59 06:59 06:59
Actual Weight 87 kg
Body Mass Index (BMI) 27.5
Lab Results / Allergies
08/14/23 12:44
08/14/23 12:44
WBC 22.3 10^3/uL (4.8-10.8) H 08/14/23 12:44
Hgb 11.0 g/dL (13.0-18.0) L 08/14/23 12:44
Hct 36.9 % (39.0-52.0) L 08/14/23 12:44
Plt Count 661 10^3/uL (130-400) H 08/14/23 12:44
Abs Immat Gran (auto) 0.1 10^3/uL (0-0.05) H 08/14/23 12:44
Neutrophils % 88.7 % (42.2-75.2) H 08/14/23 12:44
Allergy/AdvReac Type Severity Reaction Status Date / Time
clams Allergy Nausea/DIAR Verified 08/14/23 11:24
LAUREN
pollen extracts Allergy Itching Verified 08/14/23 11:24
Data Reviewed
-
Labs: Labs Reviewed by me and Discussed with Patient
Old Records: Reviewed
Assessment / Plan
-
Assessment: 47-year-old male with a recent robotic right colectomy for adenocarcinoma colon cancer with liver metastasis presents with abdominal pain and a WBC of 22.3 and tachycardic.
Plan:
Awaiting CT of the abdomen and pelvis. Remain NPO. IV fluid resuscitation. Trend lactic acid. Repeat labs in AM. Nephrology has been consulted. Plan to follow once CT is performed.
[2023-08-14 16:00] VITALS: BP 138/91
[2023-08-14] MEDS: ZOSYN 100 IV (16:13)
[2023-08-14 17:00] VITALS: BP 133/87
--- NOTE | 2023-08-14 17:13 | HPS.HSE ---
Family Physician
-
Family Physician: Morro Santiago
Chief Complaint
-
abdominal pain
History of Present Illness
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 Has
nausea but denies vomiting. He has been having a bowel movement every day including this morning although he has been a bit more constipated. He denies any fevers or chills. He denies any chest pain or shortness of breath. He denies any blood in
the stool or black stool.
Patient was recently admitted last month for right-sided colectomy for mass in the transverse/ascending colon. He was also found to be hypercalcemic secondary to elevated PTHRP. He was treated with IV fluids, pamidronate.
Medical History
Past Medical History
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
Past Surgical History: Reports Bowel Resection
Social History
Tobacco: Non-smoker
Alcohol: None
Drug: None
Family History
Family History: Not pertinent
Allergies / Home Medications
Allergies reflects when Allergies were last updated in [facility].
Home Medications with original date entered in [facility]
Allergy/Medication List:
Allergies
Allergy/AdvReac Type Severity Reaction Status Date / Time
clams Allergy Nausea/DIAR Verified 08/14/23 11:24
LAUREN
pollen extracts Allergy Itching Verified 08/14/23 11:24
Home Medications
cetirizine 10 mg capsule (Zyrtec) 10 mg PO DAILY PRN allergies 07/23/23
pantoprazole 40 mg tablet,delayed release (Protonix) 40 mg PO DAILY GERD 07/23/23
triamcinolone acetonide 55 mcg nasal spray aerosol (Nasacort) 1 spray intranasal DAILY PRN allergies 07/23/23
Review of Systems
-
History Source: Patient
A 12 point ROS was completed and negative except as noted: Yes
Constitutional: Reports No Symptoms
EENT: Reports No Symptoms
Respiratory: Reports No Symptoms
Cardiac: Reports No Symptoms
Abdomen/GI: Reports See HPI
: Reports No Symptoms
Musculoskeletal: Reports No Symptoms
Skin: Reports No Symptoms
Neurological: Reports No Symptoms
Endocrine: Reports No Symptoms
Hematologic/Lymphatic: Reports No Symptoms
Psych: Reports No Symptoms
Physical Exam
Vital Signs
Vital Signs
Temp Pulse Resp BP Pulse Ox
99.5 F 115 20 140/83 99
08/14/23 15:42 08/14/23 15:42 08/14/23 11:19 08/14/23 11:19 08/14/23 15:42
Physical Exam
General: Well Developed, Well Nourished and No Apparent Distress
HEENT: NormoCephalic, Moist mucous membranes and Atraumatic
Respiratory: Clear
Cardiac: S1/S2 and Regular Rhythm; No Murmur or Rub
GI: Soft, Non Distended, Normal Bowel Sounds and Tender (epigastric ); No Organomegaly
Rectal: Deferred by Provider
Musculoskeletal: No Clubbing, No Cyanosis and No Edema
Skin: No Rash
Neuro: Nonfocal/grossly intact
Laboratory Results
-
08/14/23 12:44
08/14/23 12:44
Laboratory Results
Lactic Acid 2.6 mmol/L (0.7-2.0) H 08/14/23 12:44
Total Bilirubin 0.9 mg/dl (0.2-1.3) 08/14/23 12:44
AST 53 U/L (17-59) 08/14/23 12:44
ALT 46 U/L (0-50) 08/14/23 12:44
Alkaline Phosphatase 421 U/L (38-126) H 08/14/23 12:44
Lipase 233 U/L (23-300) 08/14/23 12:44
Data Reviewed
-
Lab Data: Labs Reviewed by me
Old Records: Reviewed
Impression/Plan
-
IMPRESSION:
PLAN:
#SIRS (leukocytosis, tachycardia) likely related to Colon Cancer/Liver Mets
-Abdominal pain likely related to cancer/constipation/ hypercalcemia
-CT scan shows no acute abnormality or infection or source of sepsis
-N.p.o.
-IV fluids
-Check blood cultures
-Trend lactic acid
-continue empiric zosyn
-Colorectal surgery following
#Hypercalcemia secondary to malignancy/PTHRP
-Calcium 16.2
-elevated PTHRP of 83 last admisission
-IV fluids at 150 cc/hr
-pamidronate as per nephro
# Hyperkalemia likely secondary to constipation
-Monitor with IV fluids, consider Lokelma
#History of dysplastic adenocarcinoma transverse/ascending colon status post recent right colectomy with liver metastases
Chronic anemia
-Hemoglobin stable
Full code
DVT prophylaxis�heparin
NPO
--- NOTE | 2023-08-14 17:26 | W.CON.NEPH ---
Consultation
-
Date/Time Consultation Requested: August 14, 2023, 3:00 PM
Date/Time Consultation Performed: August 14, 2023, 4:30 PM
Requesting Provider: Misty
Performing Provider: Sidney
Reason for Consultation: Hypercalcemia
Medical History
-
Chief Complaint: Hypercalcemia
History of Present Illness:
. The patient is a 47-year-old male with a past medical history of metastatic adeno carcinoma of the colon to the liver. He was recently admitted to the hospital 2 weeks prior and underwent elective right hemicolectomy for his colon mass. During
that visit, we were consulted for acute kidney injury in which his creatinine is elevated to 1.5 as well as hypercalcemia with a serum calcium level in excess of 15. During his admission. We provided Pamidronate and aggressive isotonic saline
support. His acute kidney injury resolved with his creatinine janell remained down to 1.0 with a serum calcium and improvement to 10 at discharge on 08/01/23. He is currently maintained on Protonix for his GERD and Nasacort for his allergies. The
patient presented to the hospital last evening when increasing lower abdominal pain and some increasing constipation. Last week lab work had been obtained from his primary care physician which indicated a rising serum calcium. On presentation to the
hospital his serum calcium was 16.1 and nephrology was consulted to see the patient.
Past Medical History
GERD
Fungating villous adenomatous mass, status post right hemicolectomy in July 2023
Metastatic adenocarcinoma of colon to liver
Social History
No tobacco abuse
Occasional alcohol but no alcohol since March 2023
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
Family History
. No chronic kidney disease
Allergies / Home Medications
Allergy/AdvReac Type Severity Reaction Status Date / Time
clams Allergy Nausea/DIAR Verified 08/14/23 11:24
LAUREN
pollen extracts Allergy Itching Verified 08/14/23 11:24
�Medication �Instructions �Recorded �Confirmed �Type
cetirizine 10 mg capsule (Zyrtec) 10 mg PO DAILY PRN allergies 07/23/23 08/14/23 History
pantoprazole 40 mg tablet,delayed 40 mg PO DAILY GERD 07/23/23 08/14/23 History
release (Protonix)
triamcinolone acetonide 55 mcg 1 spray intranasal DAILY PRN 07/23/23 08/14/23 History
nasal spray aerosol (Nasacort) allergies
Review of Systems
-
History Source: Patient
All other systems: Negative unless noted
Constitutional: Weight Loss and Fatigue
EENT: No Symptoms
Respiratory: No Symptoms
Cardiac: No Symptoms
Abdomen/GI: Abdominal Pain and Constipated
: No Symptoms
Musculoskeletal: No Symptoms
Skin: No Symptoms
Neurological: No Symptoms
Endocrine: No Symptoms
Hematologic/Lymphatic: No Symptoms
Physical Exam
Vital Signs
Vital Signs
08/14/23 12:44
08/14/23 12:44
Temp Pulse Resp BP Pulse Ox
99.5 F 115 20 140/83 99
08/14/23 15:42 08/14/23 15:42 08/14/23 11:19 08/14/23 11:19 08/14/23 15:42
Lab Results
WBC 22.3 10^3/uL (4.8-10.8) H 08/14/23 12:44
RBC 4.82 10^6/uL (4.70-6.10) 08/14/23 12:44
Hgb 11.0 g/dL (13.0-18.0) L 08/14/23 12:44
Hct 36.9 % (39.0-52.0) L 08/14/23 12:44
Plt Count 661 10^3/uL (130-400) H 08/14/23 12:44
Sodium 132 mmol/L (135-145) L 08/14/23 12:44
Potassium 5.3 mmol/L (3.5-5.1) H 08/14/23 12:44
Chloride 100 mmol/L (98-107) 08/14/23 12:44
Carbon Dioxide 22 mmol/L (22-30) 08/14/23 12:44
BUN 13 mg/dl (9-20) 08/14/23 12:44
Creatinine 1.0 mg/dL (0.7-1.3) 08/14/23 12:44
eGFR > 60.00 08/14/23 12:44
Glucose 100 mg/dl (70-99) H 08/14/23 12:44
Calcium 16.2 mg/dl (8.4-10.2) H* 08/14/23 12:44
Albumin 4.7 g/dl (3.5-5.0) 08/14/23 12:44
Physical Exam
General: AOx3, No Distress and Nontoxic
HEENT: PERRL, EOMI, Anicteric, Conjunctivae Clear, Ear/Nose Intact, Hearing Normal, Oropharynx Clear/Moist, Dentition Intact, Facial Symmetry, Neck Supple, Trachea Midline, No JVD and No Thyromegaly
Respiratory: Clear
Cardiac: S1/S2, Regular Rate/Rhythm, No Edema and Pulses ( +2 upper and lower)
Breast: Deferred by me
Abdomen: Soft, Nondistended, Normal Bowel Sounds, No Hepatosplenomegaly and Other (, slightly tender in the midepigastric region)
Rectal: Deferred by Provider
Genito-urinary: Costovertebral Angle Tend
Musculoskeletal: No Clubbing, No Cyanosis and No Edema
Skin: No Rash, Dry, No Clubbing, No Cyanosis, Normal Turgor and No Bruising
Neuro: Nonfocal/Grossly Intact and Strength (, 5 out of 5 in both upper and lower extremities)
Hematologic/Lymphatic: No Cervical Lymphadenopathy, No Submandibular Lymphadenopathy and No Supraclavicular Lymphadenopathy
Psych: Mood/afflect pleasant, Insight/judgement good and Appropriate
Assessment/Plan
-
Impression:
Hypercalcemia (16.2)
Status post robotic right colectomy with intracorporeal anastomosis and liver biopsy 07/27/23 for fungating villous adenomatous colon mass with hepatic metastasis
Hyponatremia
Plan:
-We'll provide pamidronate 60 mg IV now
-Initiate normal saline at 150 cc per hour to promote calciuresis
-Accurate I's and O's
-Intact PTH was 10. During last admission, but PTH RP was 83 consistent with hypercalcemia of malignancy
-Patient will need oncology consult so that outpatient Xgeva can be provided for recurrent hypercalcemia
Data Reviewed
-
CT Scan: Report Reviewed by me (, no hydronephrosis. No obstruction by report,Liver metastases noted)
Medical Tests (Nuc Med, Echo etc): Other (. EKG personally reviewed, sinus Tachycardia 122 bpm)
Labs: Labs Reviewed by me
Old Records: Reviewed ( reviewed old labs from date 08/01/23 calcium 10, creatinine 1.0, reviewed previous nephrology consult from July 2023 for hypercalcemia)
[2023-08-14] MEDS: AREDIA 270 MG IV (17:34)
[2023-08-14 18:00] VITALS: BP 125/72
[2023-08-14 19:30] VITALS: BP 153/97; BMI 26.4
--- NOTE | 2023-08-14 19:30 | PTCARENOTE ---
Pt arrived to unit from ED and ambulated independently from stretcher into bed. Pt is AAOx3, VS on admission stable. Pt oriented to room, call glass within reach. Pt reports mild upper abdominal pain when rolling to his left side but none at rest;
pt denies the need for pain medication at this time. Will continue to monitor.
[2023-08-14 20:09] LABS: Lactic Acid 2.2 mmol/L (0.7-2.0)
[2023-08-14] MEDS: HEPARIN SC (20:24)
[2023-08-14] MEDS: ZOSYN 50 IV (22:15)
[2023-08-15 00:05] VITALS: BP 126/80
[2023-08-15] MEDS: NSS 1000 IV ×3 (01:34→22:45)
[2023-08-15 02:21] LABS: % Basophils 0.5 % (0-2); % Eosinophils 0.7 % (0-6); % Immature Granulocytes 0.5 % (0-0.5); % Lymphocytes 7.6 % (20.5-51.1); % Monocytes 7.9 % (1.7-9.3); % Neutrophils 82.8 % (42.2-75.2); Absolute Basophils 0.1 10^3/uL (0-0.2); Absolute Eosinophils 0.1 10^3/uL (0-0.7); Absolute Immature Granulocytes 0.1 10^3/uL (0-0.05); Absolute Lymphocytes 1.1 10^3/uL (1.2-3.4); Absolute Monocytes 1.2 10^3/uL (0.1-0.6); Absolute Neutrophils 12.3 10^3/uL (1.4-6.5); Hematocrit 29.8 % (39.0-52.0); Mean Corp Hgb Conc. 30.2 g/dL (33.0-37.0); Mean Corpuscular Hgb 22.8 pg (27.0-31.0); Mean Corpuscular Volume 75.4 fL (80.0-94.0); Mean Platelet Volume 10.4 fL (7.4-10.4); Nucleated Red Blood Cells % 0 % (-); Platelet Count 481 10^3/uL (130-400); Red Blood Cell Count 3.95 10^6/uL (4.70-6.10); Red Cell Dist. Width 26.5 % (11.5-14.5); White Blood Cell Count 14.8 10^3/uL (4.8-10.8)
[2023-08-15 02:34] LABS: Lactic Acid 1.3 mmol/L (0.7-2.0)
[2023-08-15 03:20] LABS: ALT (SGPT) 34 U/L (0-50); AST (SGOT) 41 U/L (17-59); Albumin 3.8 g/dl (3.5-5.0); Alkaline Phosphatase 317 U/L (38-126); Blood Urea Nitrogen 12 mg/dl (9-20); Calcium 13.9 mg/dl (8.4-10.2); Carbon Dioxide 22 mmol/L (22-30); Chloride 105 mmol/L (98-107); Estimated Creatinine Clearance 99 ml/min; Glucose 85 mg/dl (70-99); Potassium 5.1 mmol/L (3.5-5.1); Sodium 133 mmol/L (135-145); Total Bilirubin 0.8 mg/dl (0.2-1.3); Total Protein 7.2 g/dl (6.3-8.2); eGFR > 60.00
--- NOTE | 2023-08-15 03:59 | PTCARENOTE ---
Pt had a critical lab value this morning - calcium 13.9, trending down from 16.2. House MINGLER OPERATOR Jose Rivas notified, no new orders at this time.
[2023-08-15] MEDS: ZOSYN 50 IV ×4 (04:27→22:00)
--- NOTE | 2023-08-15 07:29 | W.PN.HOSP.TC ---
Today's Communication/Plan
-
discontinue abx, monitor off
follow cultures
cont IVF hydration
monitor Calcium
Assessment / Plan
Assessment / Plan
Physical Exam
General: Well Developed, Well Nourished and No Apparent Distress
HEENT: NormoCephalic, Moist mucous membranes and Atraumatic
Respiratory: Clear
Cardiac: S1/S2 and Regular Rhythm; No Murmur or Rub
GI: Soft, Non Distended, Mild Tenderness, Normal Bowel Sounds No Organomegaly
Musculoskeletal: No Clubbing, No Cyanosis and No Edema
Skin: No Rash
Neuro: Nonfocal/grossly intact
45M colon ca s/p rt hemicolectomy mets liver here for severe hypercalcemia 2/2 malignancy
#SIRS (leukocytosis, tachycardia) possibly related to combination stress reactive severe hypercalcemia dehydration vs Colon Cancer/Liver Mets
-Abdominal pain likely related to cancer/constipation/ hypercalcemia
-CT scan showed no acute abnormality or infection or source of sepsis
-surgery eval appreciated clear for regular diet
-cont IV fluids
-follow blood cultures NGTD
-lactic acidosis resolved
-white count improved, consistently afebrile
-discontinue empiric zosyn, monitor off
#Hypercalcemia secondary to malignancy/PTHRP
-trend Calcium
-elevated PTHRP of 83 last admisission
-IV fluids at 150 cc/hr
-pamidronate as per nephro
-Oncology eval for outpatient Xgerva set up
# Hyperkalemia likely secondary to constipation
-Monitor with IV fluids
-resolving
#History of dysplastic adenocarcinoma transverse/ascending colon status post recent right colectomy with liver metastases
Chronic anemia
-Hemoglobin stable
Full code
DVT prophylaxis�heparin
Discussed with patient and significant other Lizeth at bedside
I spent a total of 50 minutes with the patient or on the floor. More than 50% of this time involved counseling and coordination of care.
Anticipated Discharge: 24 - 48 hours
Subjective/Interval History
-
Date of Service: August 15, 2023
Reports feeling well. Abd pain nausea resolved. Eager to eat. Significant other Myn present during evaluation.
Objective Data
-
Labs:
Laboratory Results
08/15/23
02:04
WBC 14.8 H
Hgb 9.0 L
Hct 29.8 L
Plt Count 481 H D
Sodium 133 L
Potassium 5.1
Chloride 105
Carbon Dioxide 22
BUN 12
Creatinine 1.0
Glucose 85
Calcium 13.9 H*
Total Bilirubin 0.8
AST 41
ALT 34
Alkaline Phosphatase 317 H
Vital Signs:
Vital Signs
Temp Pulse Resp BP Pulse Ox
98.9 F 94 16 126/80 98
08/15/23 00:05 08/15/23 00:05 08/15/23 00:05 08/15/23 00:05 08/15/23 00:05
I&O
08/14/23 08/15/23 08/16/23
06:59 06:59 06:59
Intake Total 1610 / 1610
Output Total 1825 / 1825
Balance -215 / -215
[2023-08-15 07:30] VITALS: BP 126/91
--- NOTE | 2023-08-15 09:02 | CON.ONC ---
Documented by User: Odilia Estrada MD, Resident 08/15/23 11:09
Impression
Impression
Impression:
47 yo M with dysplastic adenocarcinoma, s/p right colectomy presents to the hospital with abdominal pain. Metastatis to liver and Hypercalcemia.
Plan :
Hypercalcemia -
16.2 - 08/13 received palmidronate 60mg, 13.9 - 08/14
Humoral hypercalcemia of malignancy.
Additional palmidronate dose of 30 mg added.
Denosumab dosing on outpatient basis planned.
Anemia,
Hb 11 on 08/13 to 9 on 08/14.
Likely dilutional after IV fluids
leukocytosis and thrombocytosis
Reactive leukocytosis and reactive thrombocytosis secondary to malignancy.
Blood cultures pending.
Plan
Plan
Today's communication and plan -
Additional dose of palmidronate 30mg.
Repeat electrolytes.
Plan for Denosumab 120 outpatient.
Patient History
History of Present Illness
Saeid, 47 yo M with metastatic adenocarcinoma of ascending colon, s/p tumor resection presents to the Emergency with epigastric abdominal pain. He reports to have sharp and shooting pain about 5/10 in intensity, radiating to his left upper quadrant.
He also reports to have felt constipated over the last week but was still able to pass stools.Reports feeling drowsy and sleeping a lot over the weekend, and sleep disturbances in the night for voiding urine. Denies associated dyspepsia, diarrhoea,
change in color of stools or bright blood in the stools. Denies any associated fatigue, muscle weakness, cramping, lightheadedness, dizziness, chest pain, SOB, and swelling of his feet.
During previous hospitalization, he developed PTHrP hypercalcemia of malignancy and was treated with palmidronate. he reported to be recovering well over the last 2 weeks until this weekend.
Past-Medical/Surgical History
PMHx - Dysplastic adenocarcinoma of transverse/ascending colon s/p right colectomy with liver metastases, hypercalcemia of malignancy)
PSHx: Right colectomy
Patient Medication
�Medication �Instructions �Recorded �Confirmed �Last Taken �Type
cetirizine 10 mg capsule (Zyrtec) 10 mg PO DAILY PRN allergies 07/23/23 08/14/23 08/14/23 History
pantoprazole 40 mg tablet,delayed 40 mg PO DAILY GERD 07/23/23 08/14/23 08/14/23 History
release (Protonix)
triamcinolone acetonide 55 mcg 1 spray intranasal DAILY PRN 07/23/23 08/14/23 07/20/23 History
nasal spray aerosol (Nasacort) allergies
Active Medications
Generic Name Dose Route Start Last Admin
Trade Name Freq PRN Reason Stop Dose Admin
Cetirizine HCl 10 mg 08/14/23 19:34
Cetirizine Hcl 10 Mg Tablet PO 09/11/23 19:33
DAILYPRN PRN
allergies
Heparin Sodium 5,000 units 08/14/23 20:00 08/14/23 20:24
Heparin 5,000 Units/Ml 1 Ml Vial SC 09/11/23 19:59 Not Given
Q12 ISHA
Sodium Chloride 1,000 mls @ 150 mls/hr 08/14/23 17:15 08/15/23 01:34
Nss IV 1,000 mls
.Q6H40M ISHA Administration
Piperacillin Sod/Tazobactam Sod 3.375 gram in 50 mls @ 100 mls/hr 08/14/23 22:00 08/15/23 04:27
Zosyn IV 50 mls
Q6H ISHA Administration
Pantoprazole Sodium 40 mg 08/15/23 08:00
Pantoprazole 40 Mg Delayed Release Tablet PO 09/12/23 07:59
DAILY ISHA
Sodium Chloride 0 flush 08/14/23 20:00
Sodium Chloride 0.9% (Flush) Syringe IV 09/11/23 19:59
PER PROTOCOL ISHA
Review of Systems
-
History Source: Patient
Constitutional: Reports No Symptoms
Respiratory: Reports No Symptoms
Cardiac: Reports No Symptoms
GI: Reports Abdominal Pain and Constipated
: Reports No Symptoms
Musculoskeletal: Reports No Symptoms
Skin: Reports No Symptoms
Neuro: Reports No Symptoms
Endocrine: Reports No Symptoms
Hematologic/Lymphatic: Reports No Symptoms
Allergy / Immunology: Reports No Symptoms
Physical Exam
-
General: Well Developed, Well Nourished and No Apparent Distress
HEENT: Other (conjunctival pallor)
Cardiology: S1, S2, No Murmur and Rub/Gallop (No)
Pulmonary: Clear (to auscultation b/l, no wheezes, rales and ronchi)
GI: Soft and Other (Soft and non distended. Mild tenderness in the epigastric region.)
Musculoskeletal: No Edema
Extremities: No C/C/E
Hematologic / Lymphatic: No Lymphadenopathy
Psych: Calm
Labs
Lab Results
WBC 14.8 10^3/uL (4.8-10.8) H 08/15/23 02:04
RBC 3.95 10^6/uL (4.70-6.10) L 08/15/23 02:04
Hgb 9.0 g/dL (13.0-18.0) L 08/15/23 02:04
Hct 29.8 % (39.0-52.0) L 08/15/23 02:04
MCV 75.4 fL (80.0-94.0) L 08/15/23 02:04
MCH 22.8 pg (27.0-31.0) L 08/15/23 02:04
MCHC 30.2 g/dL (33.0-37.0) L 08/15/23 02:04
RDW 26.5 % (11.5-14.5) H 08/15/23 02:04
Plt Count 481 10^3/uL (130-400) H D 08/15/23 02:04
MPV 10.4 fL (7.4-10.4) 08/15/23 02:04
Abs Immat Gran (auto) 0.1 10^3/uL (0-0.05) H 08/15/23 02:04
Absolute Neuts (auto) 12.3 10^3/uL (1.4-6.5) H 08/15/23 02:04
Absolute Lymphs (auto) 1.1 10^3/uL (1.2-3.4) L 08/15/23 02:04
Absolute Monos (auto) 1.2 10^3/uL (0.1-0.6) H 08/15/23 02:04
Absolute Eos (auto) 0.1 10^3/uL (0-0.7) 08/15/23 02:04
Absolute Basos (auto) 0.1 10^3/uL (0-0.2) 08/15/23 02:04
Immature Gran % 0.5 % (0-0.5) 08/15/23 02:04
Neutrophils % 82.8 % (42.2-75.2) H 08/15/23 02:04
Lymphocytes % 7.6 % (20.5-51.1) L 08/15/23 02:04
Monocytes % 7.9 % (1.7-9.3) 08/15/23 02:04
Eosinophils % 0.7 % (0-6) 08/15/23 02:04
Basophils % 0.5 % (0-2) 08/15/23 02:04
Creatinine 1.0 mg/dL (0.7-1.3) 08/15/23 02:04
Vital Signs
Vital Signs
Temp Pulse Resp BP Pulse Ox
98.7 F 104 18 126/91 99
08/15/23 07:30 08/15/23 07:30 08/15/23 07:30 08/15/23 07:30 08/15/23 07:30

Documented by User: Live Herrmann MD 08/15/23 13:00
Plan
Plan
Today's communication and plan -
Additional dose of palmidronate 30mg.
Repeat electrolytes.
Plan for Denosumab 120 outpatient.
I saw and examined the patient.
The Resident's note was reviewed and I agree with the note.
Comment:
Appears well and ECOG PS = 0-1
CT reviewed extensive liver mets and hepatomegaly.
IMP:
HyperCa+ of malignancy with rapid return of severe hypercalcemia.
ST IV Colon with extensive liver mets
PLAN:
Proceed with pamidronate 90 mg IV (60 given already...+ additional 30 mg ordered).
Denosumab (Xgeva) being arranged as outpatient.
F/U being arranged to discuss and start chemotherapy.
--- NOTE | 2023-08-15 09:29 | W.PN.CRS1 ---
Today's Communication / Plan
-
No surgery required at this time
Okay to start a regular diet from our perspective
Assessment/Plan
-
Assessment: 47-year-old male with a recent robotic right colectomy for adenocarcinoma colon cancer with liver metastasis presents with abdominal pain, leukocytosis, and hypercalcemia
Plan:
1. Okay to advance to a regular diet from our perspective.
2. Reviewed CT scan with patient. There is no indication for surgical intervention at this time.
3. On IV antibiotics.
4. IV fluids and electrolyte management per nephrology.
5. Blood cultures pending.
Subjective Data
Subjective Data
Date of Service: August 15, 2023
Patient states he feels a lot better today. He still has upper abdominal and upper left-sided pain that feels a lot better. He denies nausea or vomiting. He is hungry. He has flatus. He is having bowel movements. He is urinating without
difficulty.
Objective Data
-
Vital Signs
Temp Pulse Resp BP Pulse Ox
98.7 F 104 18 126/91 99
08/15/23 07:30 08/15/23 07:30 08/15/23 07:30 08/15/23 07:30 08/15/23 07:30
Intake & Output
08/14/23 08/15/23 08/16/23
06:59 06:59 06:59
Intake Total 1610 / 1610
Output Total 1825 / 5
Balance -215 / -215
Intake:
Oral fluids 240 / 240
IV fluids (Total) 1000 / 1000
IV piggybacks 370 / 370
Output:
Urine, Voided 1824
Lab Results
08/15/23 02:04
08/15/23 02:04
Physical Exam
-
General: No Acute Distress and AOx3
Abdomen: Soft, Non Distended and Tender (mild epigastric/LUQ)
Skin: Warm and Dry
Incision: Clear, Dry, Intact
[2023-08-15] MEDS: PROTONIX 40 MG PO (09:46)
[2023-08-15] MEDS: HEPARIN 5000 UNITS SC ×2 (09:46→20:53)
--- NOTE | 2023-08-15 10:36 | W.DCSUMMARY ---
Discharge Summary
Discharge Data
Date of Admission: 07/27/23
Date of Discharge: 08/01/23
-
Pending Results: Yes
Additional Pending Results:
Pathology
Hospital Course
47-year-old male presented for a scheduled robotic right colectomy and liver biopsy due to a partially obstructing ascending colon cancer with liver mets by Dr. Raman Disla. The patient tolerated the procedure well and was brought back to the
medical surgical floor. The following day he started on a clear liquid diet and eventually advanced to a low residue diet throughout his stay. His Deras was removed he voided without difficulty. He did have some hypercalcemia and hyperkalemia
which was managed by nephrology. His hemoglobin did trend down to 6.7 and he was ordered 3 units of packed red blood cells. On postop day 5 it was determined the patient to be discharged home after his hemoglobin had stabilized after a few days
of monitoring. He was discharged on a low residue diet. All discharge instructions were discussed the patient and family at bedside. Pathology was still pending at the time of discharge.
Discharge Plan
-
Referrals:
Morro Santiago MD [Family Provider] -
Prescriptions:
No Action
pantoprazole [Protonix] 40 mg Tablet,Delayed Release (Dr/Ec)
40 mg PO DAILY
triamcinolone acetonide [Nasacort] 55 mcg Aerosol,[place]
1 spray INTRANASAL DAILY PRN (Reason: allergies)
Zyrtec 10 mg Capsule
10 mg PO DAILY PRN (Reason: allergies)
Discharge Date and Time
Print Language: BOTSWANAN
[2023-08-15] MEDS: TYLENOL 650 MG PO ×2 (11:36→20:53)
[2023-08-15] MEDS: AREDIA 260 MG IV (11:40)
[2023-08-15 15:00] VITALS: BP 134/94
--- NOTE | 2023-08-15 15:19 | CM ---
configuration release manager reviewed patient's chart and met with patient and patient lives with significant other in a 2 story home, patient is independent with adl's and ambulation, no dme, patient has a prescription plan and uses [facility].
PCP: Dr. Santiago
Plan; Home no needs when stable.
[2023-08-15] MEDS: NSS IV (16:32)
--- NOTE | 2023-08-15 18:10 | W.PN.NEPH.PH ---
Today's Communication / Plan
-
cont IVF
Assessment/Plan
-
Impression:
Hypercalcemia (16.2)
Status post robotic right colectomy with intracorporeal anastomosis and liver biopsy 07/27/23 for fungating villous adenomatous colon mass with hepatic metastasis
Hyponatremia
Plan:
-Hypercalcemia improving post pamidronate 60 mg IV 08/13
cont IVF with NS still
labs tomorrow
-Accurate I's and O's
-Intact PTH was 10. During last admission, but PTH RP was 83 consistent with hypercalcemia of malignancy
out pt f/u with oncology for Xgeva, pt reports arrangements being done
-
-
Date of Service: August 15, 2023
CC / HPI / ROS
-
Chief Complaint:
hypercalcemia
History of Present Illness:
calcium better at 13.9 s/p pamidroinate 08/13
cr stable at 1, bp stable
sodium 133
Review of Systems:
no cp or sob
tolerating po diet
no dysuria
Labs
-
Labs:
WBC 14.8 10^3/uL (4.8-10.8) H 08/15/23 02:04
RBC 3.95 10^6/uL (4.70-6.10) L 08/15/23 02:04
Hgb 9.0 g/dL (13.0-18.0) L 08/15/23 02:04
Hct 29.8 % (39.0-52.0) L 08/15/23 02:04
Plt Count 481 10^3/uL (130-400) H D 08/15/23 02:04
Sodium 133 mmol/L (135-145) L 08/15/23 02:04
Potassium 5.1 mmol/L (3.5-5.1) 08/15/23 02:04
Chloride 105 mmol/L (98-107) 08/15/23 02:04
Carbon Dioxide 22 mmol/L (22-30) 08/15/23 02:04
BUN 12 mg/dl (9-20) 08/15/23 02:04
Creatinine 1.0 mg/dL (0.7-1.3) 08/15/23 02:04
eGFR > 60.00 08/15/23 02:04
Glucose 85 mg/dl (70-99) 08/15/23 02:04
Calcium 13.9 mg/dl (8.4-10.2) H* 08/15/23 02:04
Albumin 3.8 g/dl (3.5-5.0) 08/15/23 02:04
Physical Exam
-
Vital Signs:
Vital Signs
Temp Pulse Resp BP Pulse Ox
98.5 F 111 18 134/94 98
08/15/23 15:00 08/15/23 15:00 08/15/23 15:00 08/15/23 15:00 08/15/23 15:00
Cardiovascular:: Regular rate and rhythm
Respiratory:: Bilateral: CTA
Lung Excursion:: Normal
Abdomen:: Nontender and Soft
Extremity Edema:: None: Bilateral:
Deras Catheter: No
[2023-08-15 23:09] VITALS: BP 128/81
[2023-08-16] MEDS: ZOSYN 50 IV ×2 (04:10→09:08)
[2023-08-16] MEDS: NSS 1000 IV ×3 (05:48→22:14)
[2023-08-16 07:30] VITALS: BP 143/88
[2023-08-16 07:32] LABS: Hematocrit 31.1 % (39.0-52.0); Hemoglobin 9.1 g/dL (13.0-18.0); Mean Corp Hgb Conc. 29.3 g/dL (33.0-37.0); Mean Corpuscular Hgb 22.6 pg (27.0-31.0); Mean Corpuscular Volume 77.4 fL (80.0-94.0); Mean Platelet Volume 10.7 fL (7.4-10.4); Platelet Count 449 10^3/uL (130-400); Red Blood Cell Count 4.02 10^6/uL (4.70-6.10); White Blood Cell Count 11.6 10^3/uL (4.8-10.8)
[2023-08-16 08:05] LABS: Blood Urea Nitrogen 11 mg/dl (9-20); Calcium 12.6 mg/dl (8.4-10.2); Carbon Dioxide 22 mmol/L (22-30); Chloride 105 mmol/L (98-107); Estimated Creatinine Clearance 99 ml/min; Glucose 78 mg/dl (70-99); Magnesium 2.5 mg/dl (1.6-2.3); Phosphorus 1.9 mg/dl (2.5-4.5); Sodium 135 mmol/L (135-145); eGFR > 60.00
--- NOTE | 2023-08-16 08:47 | W.PN.CRS1 ---
Today's Communication / Plan
-
no plans for surgical intervention
will s/o - please contact if further issues arise
Assessment/Plan
-
Assessment: 47-year-old male with a recent robotic right colectomy for adenocarcinoma colon cancer with liver metastasis presents with abdominal pain, leukocytosis, and hypercalcemia
Plan:
1. Continue regular diet.
2. There is no indication for surgical intervention at this time.
3. On IV antibiotics.
4. IV fluids and electrolyte management per nephrology.
5. Blood cultures pending.
6. Labs and vitals improved since admission.
7. Will sign off, please contact if further issues arise. We spoke to him about eventual port placement. He will need to follow up in the office with Dr. Disla.
Subjective Data
Subjective Data
Date of Service: August 16, 2023
Patient states he feels well today. He is having bowel movements. He denies pain. He would like to go home later today.
Objective Data
-
Vital Signs
Temp Pulse Resp BP Pulse Ox
98.8 F 93 18 143/88 100
08/16/23 07:30 08/16/23 07:30 08/16/23 07:30 08/16/23 07:30 08/16/23 07:30
Intake & Output
08/15/23 08/16/23 08/17/23
06:59 06:59 06:59
Intake Total 1610 / 1610 1910 / 1910
Output Total 1824 / 1824 1675 / 1675
Balance -215 / -215 235 / 235
Intake:
Oral fluids 240 / 240 810 / 810
IV fluids (Total) 1000 / 1000 1000 / 1000
IV piggybacks 370 / 370 100 / 100
Output:
Urine, Voided 1824 1675 / 1675
Lab Results
08/16/23 06:44
08/16/23 06:44
Physical Exam
-
General: No Acute Distress and AOx3
Abdomen: Soft, Non Distended and Non Tender
Skin: Warm and Dry
Incision: Clear, Dry, Intact
[2023-08-16] MEDS: HEPARIN 5000 UNITS SC ×2 (09:08→20:41)
--- NOTE | 2023-08-16 11:18 | W.PN.ONC ---
Today's Communication / Plan
-
Calcium 12.8 improving post pamidronate
Hemoglobin improved by 2 g over baseline presentation and stable at 9.1 g/dL
Advance diet as per surgery
Denosumab (Xgeva) being arranged as outpatient
Follow-up appointment next in anticipation of initiating systemic therapy soon to follow
Impression
Impression
Impression:
Right colon carcinoma status post right hemicolectomy
Hypercalcemia
Iron deficiency anemia
Subjective/Objective
Subjective/Objective
Continues to appreciate mild abdominal distention/fullness.
Vital Signs:
Vital Signs
Temp Pulse Resp BP Pulse Ox
98.8 F 93 18 143/88 100
08/16/23 07:30 08/16/23 07:30 08/16/23 07:30 08/16/23 07:30 08/16/23 07:30
PE:
Alert oriented
No scleral icterus
Regular
Clear without rales or rhonchi
Abdomen mildly distended
Lab Results:
Laboratory Data
WBC 11.6 10^3/uL (4.8-10.8) H 08/16/23 06:44
Hgb 9.1 g/dL (13.0-18.0) L 08/16/23 06:44
Plt Count 449 10^3/uL (130-400) H 08/16/23 06:44
eGFR > 60.00 08/16/23 06:44
--- NOTE | 2023-08-16 11:28 | W.PN.HOSP.TC ---
Today's Communication/Plan
-
IVF, follow renal recs for hypercalcemia
continue diet, pain control
stop Abx
Assessment / Plan
Assessment / Plan
45M colon ca s/p rt hemicolectomy mets liver here for severe hypercalcemia 2/2 malignancy
SIRS (leukocytosis, tachycardia) possibly related to combination stress reactive severe hypercalcemia dehydration vs Colon Cancer/Liver Mets
- Abdominal pain likely related to cancer/constipation/hypercalcemia
- CT scan showed no acute abnormality or infection or source of sepsis
- infectious workup negative; observe off Abx
- lactic acidosis and WBC improving; elevated WBC may be related to malignancy
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
- trend Calcium, most recently 12.6
- continue IV fluids at 150 cc/hr
- elevated PTHRP of 83 last admission
- Pamidronate completed
- Oncology has arranged outpatient Xgerva set up
Hyperkalemia likely secondary to constipation
- Monitor with IV fluids
- resolving
Hypophosphatemia
- PO replacement started
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
- Surgery following; incisions healing well
- on diet
- OP F/u for PORT
Chronic anemia
- Hemoglobin stable
DVT ppx: SC Heparin
Code: Full
Anticipated Discharge: Within 24 hours
Subjective/Interval History
-
Date of Service: August 16, 2023
feels well, no complaints
Objective Data
-
Labs:
Laboratory Results
08/16/23
06:44
WBC 11.6 H
Hgb 9.1 L
Hct 31.1 L
Plt Count 449 H
Sodium 135
Potassium 5.0
Chloride 105
Carbon Dioxide 22
BUN 11
Creatinine 1.0
Glucose 78
Calcium 12.6 H
Vital Signs:
Vital Signs
Temp Pulse Resp BP Pulse Ox
98.8 F 93 18 143/88 100
08/16/23 07:30 08/16/23 07:30 08/16/23 07:30 08/16/23 07:30 08/16/23 07:30
I&O
08/15/23 08/16/23 08/17/23
06:59 06:59 06:59
Intake Total 1610 / 1610 1909 / 1909
Output Total 1825 / 1825 1675 / 1675
Balance -215 / -215 235 / 235
Physical Exam
-
General: No Apparent Distress
HEENT: Normocephalic and Atraumatic
Respiratory: Negative Wheezes
Cardiac: Regular Rhythm and S1/S2
GI: Soft and Nontender
Genito-urinary: No Costovertebral Tender
Musculoskeletal: No Edema
Neuro: AO x 3
Hematologic / Lymphatic: No Lymphadenopathy
Psych: Calm
Data Reviewed
-
Total Time Spent with Patient (in minutes): 42
Labs: Labs Reviewed by me
--- NOTE | 2023-08-16 12:31 | CM ---
Home no needs when stable.
Plan; Home no needs when stable.
[2023-08-16] MEDS: NEUTRA-PHOS POWDER PACKET 250 MG PO ×2 (14:00→17:03)
[2023-08-16 14:19] LABS: Blood Urea Nitrogen 11 mg/dl (9-20); Calcium 12.4 mg/dl (8.4-10.2); Carbon Dioxide 20 mmol/L (22-30); Chloride 106 mmol/L (98-107); Estimated Creatinine Clearance 99 ml/min; Glucose 91 mg/dl (70-99); Potassium 4.6 mmol/L (3.5-5.1); Sodium 134 mmol/L (135-145); eGFR > 60.00
[2023-08-16 15:15] VITALS: BP 145/95
[2023-08-16] MEDS: NSS IV (17:07)
--- NOTE | 2023-08-16 18:16 | W.PN.NEPH.PH ---
Today's Communication / Plan
-
IVF cont
Assessment/Plan
-
Impression:
Hypercalcemia (16.2)
Status post robotic right colectomy with intracorporeal anastomosis and liver biopsy 07/27/23 for fungating villous adenomatous colon mass with hepatic metastasis
Hyponatremia
Plan:
-Hypercalcemia improving post pamidronate 60 mg IV 08/13
cont IVF with NS still , goal mitch at 11
will need to monitor sodium as out pt
labs tomorrow
-Intact PTH was 10. During last admission, but PTH RP was 83 consistent with hypercalcemia of malignancy
out pt f/u with oncology for Xgeva, pt reports arrangements being done
-
-
Date of Service: August 16, 2023
CC / HPI / ROS
-
Chief Complaint:
hypercalcemia
History of Present Illness:
calcium better at 12.4 s/p pamidroinate 08/13
cr stable at 1, bp stable
sodium 133
Review of Systems:
no cp or sob
tolerating po diet
Labs
-
Labs:
WBC 11.6 10^3/uL (4.8-10.8) H 08/16/23 06:44
RBC 4.02 10^6/uL (4.70-6.10) L 08/16/23 06:44
Hgb 9.1 g/dL (13.0-18.0) L 08/16/23 06:44
Hct 31.1 % (39.0-52.0) L 08/16/23 06:44
Plt Count 449 10^3/uL (130-400) H 08/16/23 06:44
Sodium 134 mmol/L (135-145) L 08/16/23 13:37
Potassium 4.6 mmol/L (3.5-5.1) 08/16/23 13:37
Chloride 106 mmol/L (98-107) 08/16/23 13:37
Carbon Dioxide 20 mmol/L (22-30) L 08/16/23 13:37
BUN 11 mg/dl (9-20) 08/16/23 13:37
Creatinine 1.0 mg/dL (0.7-1.3) 08/16/23 13:37
eGFR > 60.00 08/16/23 13:37
Glucose 91 mg/dl (70-99) 08/16/23 13:37
Calcium 12.4 mg/dl (8.4-10.2) H 08/16/23 13:37
Phosphorus 1.9 mg/dl (2.5-4.5) L 08/16/23 06:44
Albumin 3.8 g/dl (3.5-5.0) 08/15/23 02:04
Physical Exam
-
Vital Signs:
Vital Signs
Temp Pulse Resp BP Pulse Ox
99.3 F 120 19 145/95 100
08/16/23 15:15 08/16/23 15:15 08/16/23 15:15 08/16/23 15:15 08/16/23 15:15
Cardiovascular:: Regular rate and rhythm
Respiratory:: Bilateral: CTA
Lung Excursion:: Normal
Extremity Edema:: None: Bilateral:
Deras Catheter: No
[2023-08-16 23:28] VITALS: BP 128/86
[2023-08-17 07:30] VITALS: BP 136/92
[2023-08-17 07:45] LABS: Hematocrit 32.2 % (39.0-52.0); Hemoglobin 9.4 g/dL (13.0-18.0); Mean Corp Hgb Conc. 29.2 g/dL (33.0-37.0); Mean Corpuscular Hgb 22.8 pg (27.0-31.0); Mean Corpuscular Volume 78.2 fL (80.0-94.0); Mean Platelet Volume 10.9 fL (7.4-10.4); Platelet Count 465 10^3/uL (130-400); Red Blood Cell Count 4.12 10^6/uL (4.70-6.10); Red Cell Dist. Width 25.5 % (11.5-14.5); White Blood Cell Count 11.3 10^3/uL (4.8-10.8)
[2023-08-17] MEDS: HEPARIN 5000 UNITS SC (07:52)
[2023-08-17 08:19] LABS: Blood Urea Nitrogen 9 mg/dl (9-20); Calcium 12.1 mg/dl (8.4-10.2); Carbon Dioxide 20 mmol/L (22-30); Chloride 104 mmol/L (98-107); Estimated Creatinine Clearance > 125 ml/min; Glucose 80 mg/dl (70-99); Magnesium 2.3 mg/dl (1.6-2.3); Phosphorus 1.9 mg/dl (2.5-4.5); Potassium 4.9 mmol/L (3.5-5.1); Sodium 134 mmol/L (135-145); eGFR > 60.00
--- NOTE | 2023-08-17 10:01 | W.PN.HOSP.TC ---
Today's Communication/Plan
-
dc to home
repeat ca2+ level Sunday
Xgeva outpatient
Assessment / Plan
Assessment / Plan
45M colon ca s/p rt hemicolectomy mets liver here for severe hypercalcemia 2/2 malignancy
SIRS (leukocytosis, tachycardia) possibly related to combination stress reactive severe hypercalcemia dehydration vs Colon Cancer/Liver Mets
- Abdominal pain likely related to cancer/constipation/hypercalcemia
- CT scan showed no acute abnormality or infection or source of sepsis
- infectious workup negative; observe off Abx
- lactic acidosis and WBC improving; elevated WBC may be related to malignancy
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
- trend Calcium, most recently 12.1
- elevated PTHRP of 83 last admission
- Pamidronate completed
- Oncology has arranged outpatient Xgerva set up next
- repeat lab on Sunday
Hyperkalemia likely secondary to constipation
- resolving
Hypophosphatemia
- PO replacement started
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
- Surgery following; incisions healing well
- on diet
- OP F/u for PORT
Chronic anemia
- Hemoglobin stable
DVT ppx: SC Heparin
Code: Full
More than 30 minutes spent in discharge including
Final examination of the patient
Summarizing hospital stay
Instructions for continuing care to all relevant caregivers
Preparation of discharge records, prescriptions, and referral forms
Total time spent (in minutes): 42
Anticipated Discharge: Today
Subjective/Interval History
-
Date of Service: August 17, 2023
no new complaints
Objective Data
-
Labs:
Laboratory Results
08/17/23
07:14
WBC 11.3 H
Hgb 9.4 L
Hct 32.2 L
Plt Count 465 H
Sodium 134 L
Potassium 4.9
Chloride 104
Carbon Dioxide 20 L
BUN 9
Creatinine 0.7
Glucose 80
Calcium 12.1 H
Vital Signs:
Vital Signs
Temp Pulse Resp BP Pulse Ox
98.7 F 95 18 136/92 100
08/17/23 07:30 08/17/23 07:30 08/17/23 07:30 08/17/23 07:30 08/17/23 07:30
I&O
08/16/23 08/17/23 08/18/23
06:59 06:59 06:59
Intake Total 1910 / 1910 960 / 960
Output Total 1675 / 1675 1350 / 1350
Balance 235 / 235 -390 / -390
Physical Exam
-
General: No Apparent Distress
HEENT: Normocephalic and Atraumatic
Respiratory: Negative Wheezes or Rales
Cardiac: Regular Rhythm and S1/S2
GI: Soft and Nontender
Musculoskeletal: No Edema
Neuro: AO x 3
Hematologic / Lymphatic: No Lymphadenopathy
Psych: Calm
Data Reviewed
-
Total Time Spent with Patient (in minutes): 42
Labs: Labs Reviewed by me
--- NOTE | 2023-08-17 10:06 | W.DS.TRANS ---
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
-
Discharge Instructions:
Discharge Diagnosis/Procedures hypercalcemia related to malignancy (right colon
cancer)
Diet Regular
Additional Diets low Calcium foods
Activity As tolerated
Bathing Restrictions None
Blood Work repeat blood work Sunday - script given
Instructions:
Stand-Alone Forms:
Changes to Home Medications: No
Discharge Medications:
DC Medications w/original date entered in [facility]
cetirizine 10 mg capsule (Zyrtec) 10 mg PO DAILY PRN allergies 07/23/23
pantoprazole 40 mg tablet,delayed release (Protonix) 40 mg PO DAILY GERD 07/23/23
triamcinolone acetonide 55 mcg nasal spray aerosol (Nasacort) 1 spray intranasal DAILY PRN allergies 07/23/23
Home Medication Changes
Pending Results: No
Total time spent discharging patient (in min): 42
--- NOTE | 2023-08-17 10:11 | CM ---
Chart reviewed and plan is to home no needs.
Plan; Home no needs.
== END 2023-08-17 11:45 | disposition home or self-care (01) | DRG 375 ==
LOC: 4 WEST ACU 17:20
PROVIDERS: Internal Medicine; Physician Assistant; ADMITTING PHYSICIAN Hospitalist; ATTENDING PHYSICIAN Internal Medicine; CONSULT PHYSICIAN Specialist; EMERGENCY PHYSICIAN Emergency Medicine; FAMILY PHYSICIAN Family Medicine; OTHER PHYSICIAN Internal Medicine Hematology & Oncology; OTHER PHYSICIAN Surgery
DX: C18.2 Malignant neoplasm of ascending colon (principal); C78.7 Secondary malignant neoplasm of liver and intrahepatic bile duct; E87.20 Acidosis, unspecified; E87.1 Hypo-osmolality and hyponatremia; N17.9 Acute kidney failure, unspecified; E83.52 Hypercalcemia; K21.9 Gastro-esophageal reflux disease without esophagitis; K59.00 Constipation, unspecified; E87.5 Hyperkalemia; D64.9 Anemia, unspecified; D75.838 Other thrombocytosis; E83.39 Other disorders of phosphorus metabolism; E83.51 Hypocalcemia; Z90.49 Acquired absence of other specified parts of digestive tract
CPT/HCPCS: 74177; 80048; 80053; 81003; 83605; 83690; 83735; 84100; 85025; 85027; 87040; 93005; 96361; 96374; 99285; J2430; Q9967

== ENCOUNTER → 2023-08-24 12:12 | Outpatient (REF) | payer OTHER, SELFPAY ==
[2023-08-24 12:34] VITALS: BP 158/106; BP_SYST 126
[2023-08-24] MEDS: ANCEF 10 IV (12:58)
[2023-08-24 14:20] VITALS: BP 133/111; BP_SYST 119
[2023-08-24 14:35] VITALS: BP 141/102; BP_SYST 114
[2023-08-24 14:50] VITALS: BP 141/102
== END ==
LOC: RADI 12:12
PROVIDERS: ATTENDING PHYSICIAN Internal Medicine Hematology & Oncology
DX: C18.2 Malignant neoplasm of ascending colon (principal)
CPT/HCPCS: 36561; 76937; 77001; 99152; 99153; C1788

== ENCOUNTER 2023-08-27 12:11 | Outpatient (RCR) | payer OTHER, SELFPAY ==
[2023-08-27 10:30] LABS: % Basophils 0.3 % (0-2); % Eosinophils 0.3 % (0-6); % Immature Granulocytes 0.9 % (0-0.5); % Lymphocytes 4.3 % (20.5-51.1); % Monocytes 5.9 % (1.7-9.3); % Neutrophils 88.3 % (42.2-75.2); Absolute Basophils 0.1 10^3/uL (0-0.2); Absolute Eosinophils 0.1 10^3/uL (0-0.7); Absolute Immature Granulocytes 0.2 10^3/uL (0-0.05); Absolute Lymphocytes 1.1 10^3/uL (1.2-3.4); Absolute Monocytes 1.5 10^3/uL (0.1-0.6); Absolute Neutrophils 23.1 10^3/uL (1.4-6.5); Hematocrit 36.7 % (39.0-52.0); Hemoglobin 10.9 g/dL (13.0-18.0); Mean Corp Hgb Conc. 29.7 g/dL (33.0-37.0); Mean Corpuscular Hgb 22.5 pg (27.0-31.0); Mean Corpuscular Volume 75.7 fL (80.0-94.0); Nucleated Red Blood Cells % 0 % (-); Platelet Count 554 10^3/uL (130-400); Red Blood Cell Count 4.85 10^6/uL (4.70-6.10); Red Cell Dist. Width 24.7 % (11.5-14.5); White Blood Cell Count 26.2 10^3/uL (4.8-10.8)
[2023-08-27 10:39] LABS: ALT (SGPT) 55 U/L (0-50); AST (SGOT) 96 U/L (17-59); Albumin 4.3 g/dl (3.5-5.0); Alkaline Phosphatase 651 U/L (38-126); Blood Urea Nitrogen 16 mg/dl (9-20); Carbon Dioxide 25 mmol/L (22-30); Chloride 97 mmol/L (98-107); Glucose 88 mg/dl (70-99); Potassium 4.7 mmol/L (3.5-5.1); Sodium 133 mmol/L (135-145); Total Bilirubin 1.2 mg/dl (0.2-1.3); Total Protein 8.2 g/dl (6.3-8.2); eGFR > 60.00
[2023-08-27 10:55] LABS: Calcium 18.8 mg/dl (8.4-10.2)
[2023-08-28 09:59] LABS: ALT (SGPT) 55 U/L (0-50); AST (SGOT) 93 U/L (17-59); Albumin 4.1 g/dl (3.5-5.0); Alkaline Phosphatase 647 U/L (38-126); Blood Urea Nitrogen 14 mg/dl (9-20); Carbon Dioxide 26 mmol/L (22-30); Chloride 99 mmol/L (98-107); Glucose 86 mg/dl (70-99); Potassium 4.2 mmol/L (3.5-5.1); Sodium 135 mmol/L (135-145); Total Bilirubin 1.1 mg/dl (0.2-1.3); Total Protein 7.9 g/dl (6.3-8.2); eGFR > 60.00
[2023-08-28 10:27] LABS: Calcium 18.8 mg/dl (8.4-10.2)
== END 2023-09-04 23:59 | disposition home or self-care (01) ==
LOC: OID 12:11
PROVIDERS: ATTENDING PHYSICIAN Internal Medicine Hematology & Oncology
DX: C18.2 Malignant neoplasm of ascending colon (principal)
CPT/HCPCS: 80053; 85025

== ENCOUNTER → 2023-09-21 09:13 | Outpatient (REF) | payer OTHER, SELFPAY | LOC: RAD 09:13 | PROVIDERS: ATTENDING PHYSICIAN Internal Medicine Hematology & Oncology; FAMILY PHYSICIAN Family Medicine | DX: C18.2 Malignant neoplasm of ascending colon (principal); E83.52 Hypercalcemia; D64.9 Anemia, unspecified; R19.7 Diarrhea, unspecified | CPT/HCPCS: 78306; A9503 ==

== ENCOUNTER → 2023-11-02 07:27 | Outpatient (REF) | payer OTHER, SELFPAY | LOC: RAD 07:27 | PROVIDERS: ATTENDING PHYSICIAN Internal Medicine Hematology & Oncology; FAMILY PHYSICIAN Internal Medicine Interventional Cardiology | DX: D50.8 Other iron deficiency anemias (principal); C18.2 Malignant neoplasm of ascending colon; E83.52 Hypercalcemia; D64.9 Anemia, unspecified; R19.7 Diarrhea, unspecified | CPT/HCPCS: 71260; 74177; Q9967 ==

== ENCOUNTER → 2024-02-08 11:53 | Outpatient (REF) | payer OTHER, SELFPAY | LOC: HWRAD 11:53 | PROVIDERS: ATTENDING PHYSICIAN Internal Medicine Hematology & Oncology; FAMILY PHYSICIAN Family Medicine | DX: C18.2 Malignant neoplasm of ascending colon (principal); E83.52 Hypercalcemia; D64.9 Anemia, unspecified; R19.7 Diarrhea, unspecified; D50.8 Other iron deficiency anemias | CPT/HCPCS: 71260; 74177; Q9967 ==

== ENCOUNTER → 2024-04-11 12:50 | Outpatient (REF) | payer OTHER, SELFPAY | LOC: PAVMRI 12:50 | PROVIDERS: ATTENDING PHYSICIAN Internal Medicine Hematology & Oncology; FAMILY PHYSICIAN Family Medicine | DX: C18.2 Malignant neoplasm of ascending colon (principal); E83.52 Hypercalcemia; D64.9 Anemia, unspecified; R19.7 Diarrhea, unspecified; D50.8 Other iron deficiency anemias | CPT/HCPCS: 72157; A9575 ==

== ENCOUNTER → 2024-05-12 08:12 | Outpatient (REF) | payer OTHER, SELFPAY | LOC: RAD 08:12 | PROVIDERS: ATTENDING PHYSICIAN Internal Medicine Hematology & Oncology; FAMILY PHYSICIAN Family Medicine | DX: C18.2 Malignant neoplasm of ascending colon (principal); C78.7 Secondary malignant neoplasm of liver and intrahepatic bile duct; E83.52 Hypercalcemia; D64.9 Anemia, unspecified; R19.7 Diarrhea, unspecified; D50.8 Other iron deficiency anemias | CPT/HCPCS: 71260; 74177; Q9967 ==

== ENCOUNTER → 2024-08-19 06:40 | Outpatient (REF) | payer OTHER, SELFPAY | LOC: RAD 06:40 | PROVIDERS: ATTENDING PHYSICIAN Registered Nurse; FAMILY PHYSICIAN Family Medicine; OTHER PHYSICIAN Internal Medicine Hematology & Oncology | DX: C18.2 Malignant neoplasm of ascending colon (principal) | CPT/HCPCS: 71260; 74177; Q9967 ==